=== PATIENT | female | born 1990 | race Caucasian/White ===

== ENCOUNTER 2016-06-20 14:30 | Inpatient (IN) | payer MEDICAID ==
[~2016-06-20] VITALS: Ht 167.6 cm; Wt 86.8 kg
[~2016-06-20 14:30] MED LIST: FERR-89 PO; FLUO-191 PO; PALI234D IM
[2016-06-20 15:05] VITALS: BP 123/64
[2016-06-20] MEDS ORDERED: HALOPERIDOL 5 MG TABLET PO PRN (16:15)
[2016-06-20] MEDS ORDERED: ARIP5TAB9 PO (16:30)
[2016-06-20 16:40] VITALS: BP 121/66
[2016-06-20] MEDS: LORazepam 2 MG TABLET PO PRN (20:14)
[2016-06-20] MEDS: ZOLPIDEM TARTRATE 10 MG TABLET PO PRN (23:25)
[2016-06-21 06:37] LABS: BASOPHILS # (AUTO) 0.07 K/uL (0.00-0.20); BASOPHILS % (AUTO) 0.7 % (0.0-2.0); EOSINOPHILS # (AUTO) 0.12 K/uL (0.00-0.70); EOSINOPHILS % (AUTO) 1.28 % (1.0-6.0); HEMATOCRIT 40.8 % (36-46); HEMOGLOBIN 13.6 g/dL (12.0-16.0); LYMPHOCYTES # (AUTO) 3.9 K/uL (1.0-4.8); MEAN CORPUSCULAR HEMOGLOBIN 29.7 pg (26.0-34.0); MEAN CORPUSCULAR HGB CONC 33.4 G/dL (31.0-37.0); MEAN CORPUSCULAR VOLUME 89 fL (80-100); MONOCYTES # (AUTO) 0.5 K/uL (0.1-1.0); NEUTROPHILS # (AUTO) 4.9 K/uL (1.8-7.7); PLATELET COUNT (AUTO) 342 K/uL (150-450); WHITE BLOOD COUNT (AUTO) 9.5 K/uL (4.5-11.0)
[2016-06-21 07:49] LABS: ALANINE AMINOTRANSFERASE 23 U/L (12-78); ALBUMIN 3.6 g/dL (3.4-5.0); ANION GAP 9 mmol/L (8-16); ASPARTATE AMINOTRANSFERASE 9 U/L (15-37); BILIRUBIN,TOTAL 0.3 mg/dL (0.1-1.0); CALCIUM, TOTAL 8.8 mg/dL (8.8-10.5); CARBON DIOXIDE 27 mmol/L (22-29); CHLORIDE 102 mmol/L (98-107); CHOL/HDL RATIO 4.2 (3.9-5.7); CREATININE 0.71 mg/dL (0.60-1.30); GLOMERULAR FILTR. RATE CALC > 60 mL/min (>60); POTASSIUM 3.7 mmol/L (3.5-5.1); SODIUM SERUM 138 mmol/L (136-145); TOTAL PROTEIN, SERUM 7.9 g/dL (6.4-8.2); UREA NITROGEN, BLOOD 9 mg/dL (7-18)
[2016-06-21] MEDS: LORazepam 2 MG TABLET PO PRN (07:49)
[2016-06-21 08:08] VITALS: BP 118/80
[2016-06-21] MEDS ORDERED: ARIPiprazole 5 MG TABLET PO SCH (09:00)
[2016-06-21 17:11] VITALS: BP 112/64
[2016-06-21] MEDS ORDERED: IBUPROFEN 400 MG TABLET PO PRN (21:00)
[2016-06-21] MEDS ORDERED: ACETAMINOPHEN 325 MG TABLET PO PRN (21:00)
[2016-06-21] MEDS: ZOLPIDEM TARTRATE 10 MG TABLET PO PRN (21:42)
[2016-06-22 02:33] VITALS: BP 116/75
[2016-06-22] MEDS: FERROUS SULFATE 325 MG EC TABLET PO SCH ×3 (06:59→16:44)
[2016-06-22] MEDS: LORazepam 2 MG TABLET PO PRN ×2 (07:59→20:59)
[2016-06-22] MEDS: ARIPiprazole 15 MG TABLET PO SCH (07:59)
[2016-06-22 08:02] VITALS: BP 119/62
[2016-06-22 13:44] LABS: APPEARANCE,URINE CLEAR (CLEAR); GLUCOSE, URINE (UA) NEGATIVE (NEGATIVE); KETONES,URINE NEGATIVE (NEGATIVE); LEUKOCYTE ESTERASE ,URINE NEGATIVE (NEGATIVE); OCCULT BLOOD,URINE TRACE (NEGATIVE); PROTEIN,URINE NEGATIVE (NEGATIVE)
[2016-06-22 13:55] LABS: ADD UA MICROSCOPIC YES
[2016-06-22 13:59] LABS: RBC,URINE 0-2 /HPF (0-2); WBC,URINE None Seen /HPF (0-5)
[2016-06-22 14:00] LABS: SQUAMOUS EPITHELIAL CELL,UR Few /LPF (None Seen)
[2016-06-22] MEDS: ZOLPIDEM TARTRATE 10 MG TABLET PO PRN (22:16)
[2016-06-22 22:43] VITALS: BP 125/65
[2016-06-23] MEDS: FERROUS SULFATE 325 MG EC TABLET PO SCH ×3 (06:58→16:43)
[2016-06-23 08:05] VITALS: BP 122/67
[2016-06-23] MEDS: ARIPiprazole 15 MG TABLET PO SCH (08:34)
[2016-06-23] MEDS: LOPERAMIDE HCL 2 MG CAPSULE PO PRN ×2 (13:34→13:37)
[2016-06-23 16:30] VITALS: BP 122/76
[2016-06-24] MEDS: LORazepam 2 MG TABLET PO PRN (00:05)
[2016-06-24 00:36] VITALS: BP 120/70
[2016-06-24] MEDS: FERROUS SULFATE 325 MG EC TABLET PO SCH ×3 (06:26→17:46)
[2016-06-24] MEDS: ARIPiprazole 15 MG TABLET PO SCH (08:32)
[2016-06-24 08:40] VITALS: BP 129/71
[2016-06-24 16:13] VITALS: BP 100/65
[2016-06-25 04:43] VITALS: BP 106/72
[2016-06-25] MEDS: FERROUS SULFATE 325 MG EC TABLET PO SCH ×2 (06:46→11:19)
[2016-06-25 08:04] VITALS: BP 131/74
[2016-06-25] MEDS: ARIPiprazole 15 MG TABLET PO SCH (08:06)
[2016-06-25] MEDS ORDERED: FERR-89 PO (09:36)
[2016-06-25] MEDS ORDERED: ARIP15TA3 PO (09:36)
[2016-06-25] MEDS: ZOLPIDEM TARTRATE 10 MG TABLET PO PRN (12:27)
== END 2016-06-25 16:00 | disposition home or self-care (01) | DRG 750 ==
LOC: 3EC 16:08 → EDSTATUS 16:30 → 3EI 06-22 14:17
PROVIDERS: ADMIT Psychiatry & Neurology Psychiatry; ATTEND Psychiatry & Neurology Psychiatry
DX: F25.9 Schizoaffective disorder, unspecified (principal); R45.851 Suicidal ideations; F32.9 Major depressive disorder, single episode, unspecified; G47.00 Insomnia, unspecified; R00.0 Tachycardia, unspecified; D64.9 Anemia, unspecified; Z83.3 Family history of diabetes mellitus
CPT/HCPCS: 80307; 84443; 87081

== ENCOUNTER 2016-08-04 11:10 | Emergency (ER) | payer MEDICAID ==
[~2016-08-04] VITALS: Ht 167.6 cm; Wt 86.4 kg
[~2016-08-04 11:10] MED LIST changes: +ARIP15TA3 PO; -FLUO-191 PO; -PALI234D IM
[2016-08-04] MEDS ORDERED: FAMO20 PO (11:18)
[2016-08-04 12:34] LABS: BASOPHILS % (AUTO) 0.6 % (0.0-2.0); EOSINOPHILS % (AUTO) 0.4 % (1.0-6.0); HEMATOCRIT 35.6 % (36-46); HEMOGLOBIN 12.2 g/dL (12.0-16.0); LYMPHOCYTES # (AUTO) 2.9 K/uL (1.0-4.8); LYMPHOCYTES % (AUTO) 41.7 % (22.0-44.0); MEAN CORPUSCULAR HEMOGLOBIN 29.8 pg (26.0-34.0); MEAN CORPUSCULAR HGB CONC 34.4 G/dL (31.0-37.0); MEAN CORPUSCULAR VOLUME 87 fL (80-100); MONOCYTES # (AUTO) 0.3 K/uL (0.1-1.0); MONOCYTES % (AUTO) 4.3 % (2.0-9.0); NEUTROPHILS # (AUTO) 3.7 K/uL (1.8-7.7); PLATELET COUNT (AUTO) 364 K/uL (150-450); RED CELL DISTRIBUTION WIDTH 13.1 % (11.5-14.5)
[2016-08-04 12:39] LABS: ANION GAP 10 mmol/L (8-16); CALCIUM, TOTAL 9.2 mg/dL (8.8-10.5); CARBON DIOXIDE 28 mmol/L (22-29); CHLORIDE 104 mmol/L (98-107); CREATININE 0.77 mg/dL (0.60-1.30); GLOMERULAR FILTR. RATE CALC > 60 mL/min (>60); POTASSIUM 4.1 mmol/L (3.5-5.1); SODIUM SERUM 142 mmol/L (136-145); UREA NITROGEN, BLOOD 11 mg/dL (7-18)
[2016-08-04 12:44] LABS: ALANINE AMINOTRANSFERASE 28 U/L (12-78); ALBUMIN 3.8 g/dL (3.4-5.0); ASPARTATE AMINOTRANSFERASE 17 U/L (15-37); BILIRUBIN,TOTAL 0.4 mg/dL (0.1-1.0); TOTAL PROTEIN, SERUM 7.7 g/dL (6.4-8.2)
[2016-08-04 13:52] VITALS: BP 109/62
== END 2016-08-04 13:52 | disposition home or self-care (01) ==
LOC: EMS 11:13
DX: F32.9 Major depressive disorder, single episode, unspecified (principal); R45.851 Suicidal ideations
CPT/HCPCS: 36415; 80053; 80307; 85025; 99284; G0480

== ENCOUNTER 2017-07-15 18:46 | Emergency (ER) | payer MEDICAID ==
[~2017-07-15] VITALS: Ht 172.7 cm; Wt 81.8 kg
[~2017-07-15 18:46] MED LIST changes: +ARIP15TA2 PO; -ARIP15TA3 PO; +FAMO20 PO; -FERR-89 PO
[2017-07-15 18:56] VITALS: BP 145/84
[2017-07-15 19:42] LABS: BASOPHILS % (AUTO) 0.7 % (0.0-2.0); EOSINOPHILS % (AUTO) 1.2 % (1.0-6.0); HEMATOCRIT 38.4 % (36-46); HEMOGLOBIN 13.5 g/dL (12.0-16.0); LYMPHOCYTES # (AUTO) 3.2 K/uL (1.0-4.8); LYMPHOCYTES % (AUTO) 45.4 % (22.0-44.0); MEAN CORPUSCULAR HEMOGLOBIN 29.9 pg (26.0-34.0); MEAN CORPUSCULAR HGB CONC 35.2 G/dL (31.0-37.0); MEAN CORPUSCULAR VOLUME 85 fL (80-100); MONOCYTES # (AUTO) 0.3 K/uL (0.1-1.0); MONOCYTES % (AUTO) 3.8 % (2.0-9.0); NEUTROPHILS # (AUTO) 3.5 K/uL (1.8-7.7); NEUTROPHILS % (AUTO) 48.9 % (40.0-70.0); PLATELET COUNT (AUTO) 357 K/uL (150-450); RED BLOOD CELL COUNT(AUTO) 4.53 MIL/uL (4.00-5.20); RED CELL DISTRIBUTION WIDTH 13.4 % (11.5-14.5)
[2017-07-15 19:55] LABS: ANION GAP 8 mmol/L (8-16); CALCIUM, TOTAL 8.8 mg/dL (8.8-10.5); CARBON DIOXIDE 25 mmol/L (22-29); CHLORIDE 104 mmol/L (98-107); GLOMERULAR FILTR. RATE CALC > 60 mL/min (>60); GLUCOSE,RANDOM 143 mg/dL (70-110); POTASSIUM 4.2 mmol/L (3.5-5.1); SODIUM SERUM 137 mmol/L (136-145); UREA NITROGEN, BLOOD 8 mg/dL (7-18)
[2017-07-15 20:00] LABS: ALANINE AMINOTRANSFERASE 23 U/L (12-78); ALBUMIN 3.9 g/dL (3.4-5.0); ALKALINE PHOSPHATASE 65 U/L (46-116); ASPARTATE AMINOTRANSFERASE 12 U/L (15-37); BILIRUBIN,TOTAL 0.3 mg/dL (0.1-1.0); TOTAL PROTEIN, SERUM 8.2 g/dL (6.4-8.2)
== END 2017-07-15 22:30 | disposition left against medical advice (07) ==
LOC: EMS 18:47
DX: R44.0 Auditory hallucinations (principal); F20.9 Schizophrenia, unspecified; F32.9 Major depressive disorder, single episode, unspecified; Z53.21 Procedure and treatment not carried out due to patient leaving prior to being seen by health care provider
CPT/HCPCS: 36415; 80053; 84703; 85025; 99281; G0480

== ENCOUNTER 2018-03-31 16:20 | Inpatient (IN) | payer MEDICAID ==
[~2018-03-31] VITALS: Ht 167.6 cm; Wt 80.3 kg
[2018-03-31] MEDS ORDERED: LAMO25 PO (16:30)
[2018-03-31] MEDS ORDERED: QUET25TA PO (16:30)
[2018-03-31 17:07] LABS: BASOPHILS % (AUTO) 0.8 % (0.0-2.0); EOSINOPHILS % (AUTO) 0.3 % (1.0-6.0); HEMATOCRIT 36.8 % (36-46); HEMOGLOBIN 12.9 g/dL (12.0-16.0); LYMPHOCYTES # (AUTO) 2.3 K/uL (1.0-4.8); LYMPHOCYTES % (AUTO) 26.4 % (22.0-44.0); MEAN CORPUSCULAR HGB CONC 35.2 G/dL (31.0-37.0); MEAN CORPUSCULAR VOLUME 85 fL (80-100); MONOCYTES # (AUTO) 0.2 K/uL (0.1-1.0); MONOCYTES % (AUTO) 2.9 % (2.0-9.0); NEUTROPHILS % (AUTO) 69.6 % (40.0-70.0); PLATELET COUNT (AUTO) 361 K/uL (150-450); RED BLOOD CELL COUNT(AUTO) 4.32 MIL/uL (4.00-5.20); RED CELL DISTRIBUTION WIDTH 13.1 % (11.5-14.5)
[2018-03-31 17:14] LABS: ANION GAP 9 mmol/L (8-16); CARBON DIOXIDE 23 mmol/L (22-29); CHLORIDE 103 mmol/L (98-107); CREATININE 0.89 mg/dL (0.60-1.30); GLOMERULAR FILTR. RATE CALC > 60 mL/min (>60); GLUCOSE,RANDOM 188 mg/dL (70-110); SODIUM SERUM 135 mmol/L (136-145); UREA NITROGEN, BLOOD 9 mg/dL (7-18)
[2018-03-31 17:29] LABS: ALANINE AMINOTRANSFERASE 28 U/L (12-78); ALBUMIN 3.9 g/dL (3.4-5.0); ALKALINE PHOSPHATASE 56 U/L (46-116); ASPARTATE AMINOTRANSFERASE 20 U/L (15-37); BILIRUBIN,TOTAL 0.3 mg/dL (0.1-1.0); HCG,QUANTITATIVE < 1 mIU/mL (0-6); THYROID STIMULATING HORMONE 0.83 uIU/mL (0.36-3.74); TOTAL PROTEIN, SERUM 7.9 g/dL (6.4-8.2)
[2018-03-31 18:37] LABS: AMPHET/METH SCREEN,URINE NEGATIVE (NEGATIVE); BARBITURATE SCREEN, URINE NEGATIVE (NEGATIVE); BENZODIAZEPINES SCREEN,URINE NEGATIVE (NEGATIVE); CANNABINOID SCREEN,URINE NEGATIVE (NEGATIVE); COCAINE SCREEN,URINE NEGATIVE (NEGATIVE); METHADONE SCREEN, URINE NEGATIVE (NEGATIVE); OPIATE SCREEN,URINE NEGATIVE (NEGATIVE)
[2018-03-31 18:39] LABS: PHENCYCLIDINE SCREEN,URINE NEGATIVE (NEGATIVE)
[2018-03-31 18:41] LABS: APPEARANCE,URINE CLEAR (CLEAR); BILIRUBIN,URINE NEGATIVE (NEGATIVE); GLUCOSE, URINE (UA) 100 mg/dL (NEGATIVE); KETONES,URINE NEGATIVE (NEGATIVE); LEUKOCYTE ESTERASE ,URINE NEGATIVE (NEGATIVE); NITRATE,URINE NEGATIVE (NEGATIVE); OCCULT BLOOD,URINE TRACE (NEGATIVE); PH,URINE 5.5 (5.0-8.0); PROTEIN,URINE NEGATIVE (NEGATIVE); UROBILINOGEN,URINE 0.2 mg/dL (<=1.0)
[2018-03-31 19:04] LABS: BACTERIA,URINE None Seen /HPF (None Seen); RBC,URINE 0-2 /HPF (0-2); WBC,URINE 0-2 /HPF (0-5)
[2018-03-31 19:05] LABS: MUCUS,URINE Few LPF (None Seen); SQUAMOUS EPITHELIAL CELL,UR Few /LPF (None Seen)
[2018-03-31] MEDS ORDERED: DiphenhydrAMINE HCL 50 MG CAPSULE PO ONE (20:00)
[2018-03-31] MEDS ORDERED: HALOPERIDOL 5 MG TABLET PO ONE (20:00)
[2018-03-31] MEDS ORDERED: HALOPERIDOL 5 MG TABLET PO PRN (20:00)
[2018-03-31] MEDS ORDERED: LORazepam 2 MG TABLET PO ONE (20:00)
[2018-03-31] MEDS ORDERED: ZOLPIDEM TARTRATE 10 MG TABLET PO PRN (20:00)
[2018-03-31 21:16] LABS: CHOL/HDL RATIO 3.3 (3.9-5.7); FREE T4 (FREE THYROXINE) 0.99 ng/dL (0.76-1.46)
[2018-03-31 21:23] LABS: HEMOGLOBIN A1C 5.6 % (4.5-6.2)
[2018-04-01 06:31] VITALS: BP 120/75
[2018-04-01] MEDS ORDERED: LOPERAMIDE HCL 2 MG CAPSULE PO PRN (06:45)
[2018-04-01] MEDS ORDERED: IBUPROFEN 400 MG TABLET PO PRN (06:45)
[2018-04-01] MEDS ORDERED: ACETAMINOPHEN 325 MG TABLET PO PRN (06:45)
[2018-04-01] MEDS ORDERED: MAGNESIUM HYDROXIDE SUSPENSION 30 ML UDCUP PO PRN (06:45)
[2018-04-01] MEDS ORDERED: MAG HYDROX/AL HYDROX/SIMETH ES 30 ML SUSPENSION UDCUP PO PRN (06:45)
[2018-04-01] MEDS ORDERED: ALBUTEROL SULFATE HFA 90 MCG/PUFF 8 GM INHALER IH PRN (06:45)
[2018-04-01] MEDS ORDERED: NICOTINE 14 MG/24 HOUR PATCH TD PRN (06:45)
[2018-04-01] MEDS ORDERED: CloNIDine HCL 0.1 MG TABLET PO PRN (06:45)
[2018-04-01] MEDS ORDERED: DOCUSATE SODIUM 100 MG CAPSULE PO PRN (06:45)
[2018-04-01] MEDS ORDERED: GuaiFENesin/D-METHORPHAN [SUGAR-FREE] 200-20MG/10 ML SYRUP UDCUP PO PRN (06:45)
[2018-04-01] MEDS ORDERED: PETROLATUM,WHITE 71 GM JELLY TP PRN (06:45)
[2018-04-01] MEDS ORDERED: ONDANSETRON HCL 4 MG TABLET PO PRN (06:45)
[2018-04-01 09:04] VITALS: BP 120/68
[2018-04-01] MEDS ORDERED: PALIPERIDONE 1.5 MG ER TABLET PO PRN (15:15)
[2018-04-01] MEDS ORDERED: PALIPERIDONE PALMITATE 234 MG/1.5 ML SYRINGE IM ONE (15:15)
[2018-04-01 18:37] VITALS: BP 125/79
[2018-04-01] MEDS ORDERED: PALIPERIDONE 3 MG ER TABLET PO SCH (21:00)
[2018-04-02 04:35] VITALS: BP 121/68
[2018-04-02 08:14] VITALS: BP 117/71
[2018-04-02 08:46] LABS: CHOL/HDL RATIO 3.7 (3.9-5.7); THYROID STIMULATING HORMONE 0.94 uIU/mL (0.36-3.74)
[2018-04-02 16:22] VITALS: BP 103/64
[2018-04-02 16:37] LABS: HEMOGLOBIN A1C 6.1 % (4.5-6.2)
[2018-04-02] MEDS: LORazepam 2 MG TABLET PO PRN (17:17)
[2018-04-02] MEDS ORDERED: QUEtiapine FUMARATE 100 MG TABLET PO SCH (21:00)
[2018-04-03 05:25] VITALS: BP 104/62
[2018-04-03 08:13] VITALS: BP 105/66
[2018-04-03] MEDS: LamoTRIgine 25 MG TABLET PO SCH (08:32)
[2018-04-03 08:59] LABS: ALANINE AMINOTRANSFERASE 26 U/L (12-78); ALBUMIN 3.6 g/dL (3.4-5.0); ALKALINE PHOSPHATASE 54 U/L (46-116); ANION GAP 11 mmol/L (8-16); ASPARTATE AMINOTRANSFERASE 14 U/L (15-37); BILIRUBIN,TOTAL 0.4 mg/dL (0.1-1.0); CALCIUM, TOTAL 9.1 mg/dL (8.8-10.5); CARBON DIOXIDE 22 mmol/L (22-29); CHLORIDE 106 mmol/L (98-107); CREATININE 0.73 mg/dL (0.60-1.30); GLOMERULAR FILTR. RATE CALC > 60 mL/min (>60); GLUCOSE,RANDOM 111 mg/dL (70-110); POTASSIUM 4.3 mmol/L (3.5-5.1); SODIUM SERUM 139 mmol/L (136-145); UREA NITROGEN, BLOOD 13 mg/dL (7-18)
[2018-04-03 16:21] VITALS: BP 121/90
[2018-04-03] MEDS ORDERED: LAMO25 PO (16:25)
[2018-04-03] MEDS ORDERED: QUET100T33 PO (16:25)
[2018-04-03] MEDS: LORazepam 2 MG TABLET PO PRN (16:59)
[2018-04-03] MEDS ORDERED: QUEtiapine FUMARATE 100 MG TABLET PO SCH (21:00)
[2018-04-04 02:38] VITALS: BP 103/64
[2018-04-04] MEDS ORDERED: LAMO25 PO (08:24)
[2018-04-04] MEDS ORDERED: QUET200T PO (08:25)
[2018-04-04] MEDS: LamoTRIgine 25 MG TABLET PO SCH (08:29)
[2018-04-04 09:09] VITALS: BP 114/67
[2018-04-05] MEDS ORDERED: PALIPERIDONE PALMITATE 156 MG/ML SYRINGE IM ONE (09:00)
== END 2018-04-04 17:05 | disposition home or self-care (01) | DRG 750 ==
LOC: EMS 16:22 → AHU 04-01 06:00 → B2S 04-01 17:35
PROVIDERS: ADMIT Psychiatry & Neurology Psychiatry; ATTEND Psychiatry & Neurology Psychiatry
PROC: 3E0234Z Introduction of Serum, Toxoid and Vaccine into Muscle, Percutaneous Approach (ICD-10-PCS; principal; 2018-04-01)
DX: F25.9 Schizoaffective disorder, unspecified (principal); Z91.19 Patient's noncompliance with other medical treatment and regimen; E78.5 Hyperlipidemia, unspecified; F32.9 Major depressive disorder, single episode, unspecified; Z65.3 Problems related to other legal circumstances; Z83.3 Family history of diabetes mellitus; R73.9 Hyperglycemia, unspecified; Z23 Encounter for immunization
CPT/HCPCS: 83036; 84439; 84443; 90686; G0480

== ENCOUNTER 2018-05-03 15:58 | Inpatient (IN) | payer MEDICAID ==
[~2018-05-03] VITALS: Ht 167.6 cm; Wt 85.4 kg
[~2018-05-03 15:58] MED LIST changes: -ARIP15TA2 PO; -FAMO20 PO; +LAMO25 PO; +QUET100T33 PO; +QUET200T PO
[2018-05-03 20:39] VITALS: BP 120/78
[2018-05-03] MEDS ORDERED: HALOPERIDOL 5 MG TABLET PO PRN (20:45)
[2018-05-03] MEDS ORDERED: ZOLPIDEM TARTRATE 10 MG TABLET PO PRN (20:45)
[2018-05-03] MEDS ORDERED: LORazepam 2 MG TABLET PO PRN (20:45)
[2018-05-03 21:26] VITALS: BP 119/77
[2018-05-03] MEDS ORDERED: IBUPROFEN 400 MG TABLET PO PRN (22:00)
[2018-05-03] MEDS ORDERED: ACETAMINOPHEN 325 MG TABLET PO PRN (22:00)
[2018-05-03] MEDS ORDERED: DOCUSATE SODIUM 100 MG CAPSULE PO PRN (22:00)
[2018-05-03] MEDS ORDERED: ALBUTEROL SULFATE HFA 90 MCG/PUFF 8 GM INHALER IH PRN (22:00)
[2018-05-03] MEDS ORDERED: MAGNESIUM HYDROXIDE SUSPENSION 30 ML UDCUP PO PRN (22:00)
[2018-05-03] MEDS ORDERED: GuaiFENesin/D-METHORPHAN [SUGAR-FREE] 200-20MG/10 ML SYRUP UDCUP PO PRN (22:00)
[2018-05-03] MEDS ORDERED: CloNIDine HCL 0.1 MG TABLET PO PRN (22:00)
[2018-05-03] MEDS ORDERED: ONDANSETRON HCL 4 MG TABLET PO PRN (22:00)
[2018-05-03] MEDS ORDERED: PETROLATUM,WHITE 28 GM JELLY TP PRN (22:00)
[2018-05-03] MEDS ORDERED: NICOTINE 14 MG/24 HOUR PATCH TD PRN (22:00)
[2018-05-03] MEDS ORDERED: MAG HYDROX/AL HYDROX/SIMETH ES 30 ML SUSPENSION UDCUP PO PRN (22:00)
[2018-05-03] MEDS ORDERED: PALI156D IM (22:06)
[2018-05-03] MEDS ORDERED: PALI234D IM (22:06)
[2018-05-04 00:55] VITALS: BP 107/62
[2018-05-04 07:46] LABS: EOSINOPHILS % (AUTO) 2.8 % (1.0-6.0); HEMATOCRIT 38.5 % (36-46); HEMOGLOBIN 13.2 g/dL (12.0-16.0); LYMPHOCYTES # (AUTO) 2.5 K/uL (1.0-4.8); LYMPHOCYTES % (AUTO) 34.9 % (22.0-44.0); MEAN CORPUSCULAR HGB CONC 34.4 G/dL (31.0-37.0); MEAN CORPUSCULAR VOLUME 87 fL (80-100); MONOCYTES # (AUTO) 0.4 K/uL (0.1-1.0); MONOCYTES % (AUTO) 5.2 % (2.0-9.0); NEUTROPHILS % (AUTO) 56.1 % (40.0-70.0); PLATELET COUNT (AUTO) 347 K/uL (150-450); RED BLOOD CELL COUNT(AUTO) 4.42 MIL/uL (4.00-5.20); RED CELL DISTRIBUTION WIDTH 13.9 % (11.5-14.5)
[2018-05-04 08:02] LABS: HEMOGLOBIN A1C 6.4 % (4.5-6.2)
[2018-05-04 08:26] VITALS: BP 123/84
[2018-05-04 08:47] LABS: ALANINE AMINOTRANSFERASE 17 U/L (12-78); ALBUMIN 3.9 g/dL (3.4-5.0); ALKALINE PHOSPHATASE 61 U/L (46-116); ANION GAP 14 mmol/L (8-16); ASPARTATE AMINOTRANSFERASE 12 U/L (15-37); BILIRUBIN,TOTAL 0.5 mg/dL (0.1-1.0); CALCIUM, TOTAL 9.2 mg/dL (8.8-10.5); CARBON DIOXIDE 19 mmol/L (22-29); CHLORIDE 102 mmol/L (98-107); CHOL/HDL RATIO 4.1 (3.9-5.7); CHOLESTEROL 116 mg/dL (131-200); CREATININE 0.75 mg/dL (0.60-1.30); FREE T4 (FREE THYROXINE) 1.01 ng/dL (0.76-1.46); GLOMERULAR FILTR. RATE CALC > 60 mL/min (>60); GLUCOSE,RANDOM 160 mg/dL (70-110); HCG,QUANTITATIVE < 1 mIU/mL (0-6); HDL CHOLESTEROL 28 mg/dL (40-60); LDL CHOL (CALC.) 70 mg/dL (0-130); POTASSIUM 4.3 mmol/L (3.5-5.1); SODIUM SERUM 135 mmol/L (136-145); THYROID STIMULATING HORMONE 2.33 uIU/mL (0.36-3.74); TOTAL PROTEIN, SERUM 7.9 g/dL (6.4-8.2); TRIGLYCERIDES 90 mg/dL (15-150); UREA NITROGEN, BLOOD 11 mg/dL (7-18)
[2018-05-04] MEDS: LamoTRIgine 25 MG TABLET PO SCH (13:08)
[2018-05-04 16:13] VITALS: BP 119/77
[2018-05-04] MEDS ORDERED: QUEtiapine FUMARATE 200 MG TABLET PO SCH (21:00)
[2018-05-04] MEDS: LOPERAMIDE HCL 2 MG CAPSULE PO PRN (21:26)
[2018-05-05 01:10] VITALS: BP 119/72
[2018-05-05] MEDS: LamoTRIgine 25 MG TABLET PO SCH (08:09)
[2018-05-05 08:23] VITALS: BP 115/70
[2018-05-05] MEDS: ARIPiprazole 10 MG TABLET PO SCH (12:39)
[2018-05-05 16:00] VITALS: BP 114/69
[2018-05-05] MEDS: QUEtiapine FUMARATE 200 MG TABLET PO SCH (20:57)
[2018-05-06 00:26] VITALS: BP 108/64
[2018-05-06 09:05] VITALS: BP 108/71
[2018-05-06] MEDS: ARIPiprazole 10 MG TABLET PO SCH (09:13)
[2018-05-06] MEDS: LamoTRIgine 25 MG TABLET PO SCH (09:14)
[2018-05-06 16:30] VITALS: BP 113/72
[2018-05-06] MEDS: QUEtiapine FUMARATE 200 MG TABLET PO SCH (20:08)
[2018-05-06] MEDS: LOPERAMIDE HCL 2 MG CAPSULE PO PRN (20:39)
[2018-05-07 00:30] VITALS: BP 114/60
[2018-05-07 08:34] VITALS: BP 114/68
[2018-05-07] MEDS: LamoTRIgine 25 MG TABLET PO SCH (08:55)
[2018-05-07] MEDS: ARIPiprazole 10 MG TABLET PO SCH (08:55)
[2018-05-07] MEDS ORDERED: ARIP10TA8 PO (09:23)
[2018-05-07 09:25] LABS: APPEARANCE,URINE CLEAR (CLEAR); BILIRUBIN,URINE NEGATIVE (NEGATIVE); GLUCOSE, URINE (UA) NEGATIVE (NEGATIVE); KETONES,URINE NEGATIVE (NEGATIVE); LEUKOCYTE ESTERASE ,URINE NEGATIVE (NEGATIVE); NITRATE,URINE NEGATIVE (NEGATIVE); OCCULT BLOOD,URINE NEGATIVE (NEGATIVE); PH,URINE 5.5 (5.0-8.0); PROTEIN,URINE NEGATIVE (NEGATIVE); UROBILINOGEN,URINE 0.2 mg/dL (<=1.0)
== END 2018-05-07 16:05 | disposition home or self-care (01) | DRG 750 ==
LOC: B2S 20:56
PROVIDERS: ADMIT Psychiatry & Neurology Psychiatry; ATTEND Psychiatry & Neurology Psychiatry
DX: F20.9 Schizophrenia, unspecified (principal); E87.1 Hypo-osmolality and hyponatremia; R45.851 Suicidal ideations; R73.03 Prediabetes; D64.9 Anemia, unspecified; R73.9 Hyperglycemia, unspecified; R45.87 Impulsiveness; F41.0 Panic disorder [episodic paroxysmal anxiety]; Z91.410 Personal history of adult physical and sexual abuse; Z83.3 Family history of diabetes mellitus; Z91.5 Personal history of self-harm
CPT/HCPCS: 83036; 84436; 84439; 84443; 87081

== ENCOUNTER 2019-03-12 14:25 | Inpatient (IN) | payer MEDICAID ==
[~2019-03-12] VITALS: Ht 170.2 cm; Wt 88.0 kg
[~2019-03-12 14:25] MED LIST changes: +ARIP15TA2 PO; +GLIP5TAB11 PO; +IMIQ1CRE9 TP; -LAMO25 PO; +METF-960 PO; -QUET100T33 PO; -QUET200T PO; +QUET200T29 PO
[2019-03-12 15:06] VITALS: BP 115/69
[2019-03-12] MEDS ORDERED: HALOPERIDOL 5 MG TABLET PO PRN (15:15)
[2019-03-12] MEDS ORDERED: ZOLPIDEM TARTRATE 10 MG TABLET PO PRN (15:15)
[2019-03-12] MEDS ORDERED: PNEUMOCOCCAL VACCINE POLYVALENT 0.5 ML VIAL [PPSV23] IM ONE (16:00)
[2019-03-12 16:41] VITALS: BP 117/78
[2019-03-12] MEDS: RisperiDONE 3 MG TABLET PO SCH (17:00)
[2019-03-12] MEDS: BENZTROPINE MESYLATE 1 MG TABLET PO SCH (19:12)
[2019-03-12] MEDS: QUEtiapine FUMARATE 300 MG TABLET PO SCH (19:12)
[2019-03-13 06:00] VITALS: BP 112/60
[2019-03-13 08:22] LABS: BASOPHILS % (AUTO) 0.8 % (0.0-2.0); EOSINOPHILS % (AUTO) 3.6 % (1.0-6.0); HEMOGLOBIN 12.8 g/dL (12.0-16.0); LYMPHOCYTES # (AUTO) 2.5 K/uL (1.0-4.8); LYMPHOCYTES % (AUTO) 33.1 % (22.0-44.0); MEAN CORPUSCULAR HEMOGLOBIN 29.8 pg (26.0-34.0); MEAN CORPUSCULAR HGB CONC 35.4 G/dL (31.0-37.0); MEAN CORPUSCULAR VOLUME 84 fL (80-100); MONOCYTES # (AUTO) 0.5 K/uL (0.1-1.0); MONOCYTES % (AUTO) 6.7 % (2.0-9.0); NEUTROPHILS # (AUTO) 4.3 K/uL (1.8-7.7); NEUTROPHILS % (AUTO) 55.8 % (40.0-70.0); PLATELET COUNT (AUTO) 274 K/uL (150-450); RED BLOOD CELL COUNT(AUTO) 4.28 MIL/uL (4.00-5.20); RED CELL DISTRIBUTION WIDTH 12.5 % (11.5-14.5)
[2019-03-13 08:40] VITALS: BP 109/73
[2019-03-13 08:44] LABS: ALANINE AMINOTRANSFERASE 128 U/L (12-78); ALBUMIN 3.3 g/dL (3.4-5.0); ALKALINE PHOSPHATASE 85 U/L (46-116); ANION GAP 7 mmol/L (8-16); ASPARTATE AMINOTRANSFERASE 39 U/L (15-37); BILIRUBIN,TOTAL 0.3 mg/dL (0.1-1.0); CALCIUM, TOTAL 8.8 mg/dL (8.8-10.5); CARBON DIOXIDE 26 mmol/L (22-29); CHLORIDE 103 mmol/L (98-107); CHOL/HDL RATIO 4.9 (3.9-5.7); CHOLESTEROL 136 mg/dL (131-200); CREATININE 0.65 mg/dL (0.60-1.30); FREE T4 (FREE THYROXINE) 0.91 ng/dL (0.76-1.46); GLOMERULAR FILTR. RATE CALC > 60 mL/min (>60); GLUCOSE,RANDOM 207 mg/dL (70-110); HCG,QUANTITATIVE 1 mIU/mL (0-6); HDL CHOLESTEROL 28 mg/dL (40-60); LDL CHOL (CALC.) 92 mg/dL (0-130); SODIUM SERUM 136 mmol/L (136-145); THYROID STIMULATING HORMONE 1.48 uIU/mL (0.36-3.74); TRIGLYCERIDES 80 mg/dL (15-150); UREA NITROGEN, BLOOD 7 mg/dL (7-18)
[2019-03-13 08:46] LABS: HEMOGLOBIN A1C 9.9 % (4.5-6.2)
[2019-03-13] MEDS: QUEtiapine FUMARATE 300 MG TABLET PO SCH ×2 (09:00→18:33)
[2019-03-13] MEDS ORDERED: ARIPiprazole 15 MG TABLET PO SCH (09:00)
[2019-03-13] MEDS: RisperiDONE 3 MG TABLET PO SCH (09:14)
[2019-03-13] MEDS: BENZTROPINE MESYLATE 1 MG TABLET PO SCH ×2 (09:14→18:34)
[2019-03-13 16:05] VITALS: BP 107/68
[2019-03-13] MEDS ORDERED: QUEtiapine FUMARATE 300 MG TABLET PO SCH (21:00)
[2019-03-14 05:48] VITALS: BP 101/62
[2019-03-14 08:16] VITALS: BP 115/73
[2019-03-14] MEDS: BENZTROPINE MESYLATE 1 MG TABLET PO SCH ×2 (08:21→16:17)
[2019-03-14] MEDS: LITHIUM CARBONATE 300 MG CAPSULE PO SCH ×2 (08:21→16:17)
[2019-03-14] MEDS: QUEtiapine FUMARATE 300 MG TABLET PO SCH ×2 (08:23→16:17)
[2019-03-14 16:45] VITALS: BP 139/78
[2019-03-14] MEDS ORDERED: QUET300T2 PO (17:08)
[2019-03-14 17:14] LABS: GLUCOMETER DEV NAME(LOC) BV3N.; GLUCOSE,POINT OF CARE 241 MG/DL (70-110)
[2019-03-14] MEDS ORDERED: MetFORMIN HCL 850 MG TABLET PO SCH (17:15)
[2019-03-14] MEDS ORDERED: GLUCAGON,HUMAN RECOMBINANT 1 MG VIAL IM PRN (17:15)
[2019-03-14] MEDS: INSULIN LISPRO 100 UNITS/ML SQ PRN ×2 (17:31→20:46)
[2019-03-14] MEDS: LORazepam 2 MG TABLET PO PRN (17:32)
[2019-03-14] MEDS: MetFORMIN HCL 500 MG TABLET PO SCH (17:50)
[2019-03-14] MEDS: ARIPiprazole 15 MG TABLET PO SCH (20:03)
[2019-03-14 20:52] LABS: GLUCOMETER DEV NAME(LOC) BV3N.; GLUCOSE,POINT OF CARE 315 MG/DL (70-110)
[2019-03-15 05:28] VITALS: BP 124/76
[2019-03-15] MEDS: MetFORMIN HCL 500 MG TABLET PO SCH ×2 (06:17→16:55)
[2019-03-15] MEDS: GlipiZIDE 5 MG TABLET PO SCH ×2 (06:17→16:58)
[2019-03-15 06:24] LABS: GLUCOMETER DEV NAME(LOC) BV3N.; GLUCOSE,POINT OF CARE 181 MG/DL (70-110)
[2019-03-15] MEDS: INSULIN LISPRO 100 UNITS/ML SQ PRN ×3 (07:03→20:43)
[2019-03-15 08:16] LABS: APPEARANCE,URINE CLEAR (CLEAR); BILIRUBIN,URINE NEGATIVE (NEGATIVE); GLUCOSE, URINE (UA) 250 mg/dL (NEGATIVE); KETONES,URINE NEGATIVE (NEGATIVE); LEUKOCYTE ESTERASE ,URINE NEGATIVE (NEGATIVE); NITRATE,URINE NEGATIVE (NEGATIVE); OCCULT BLOOD,URINE NEGATIVE (NEGATIVE); PH,URINE 5.5 (5.0-8.0); PROTEIN,URINE NEGATIVE (NEGATIVE); UROBILINOGEN,URINE 0.2 mg/dL (<=1.0)
[2019-03-15] MEDS: LITHIUM CARBONATE 300 MG CAPSULE PO SCH ×2 (08:16→16:55)
[2019-03-15] MEDS: LORazepam 2 MG TABLET PO PRN ×2 (08:16→16:56)
[2019-03-15] MEDS: BENZTROPINE MESYLATE 1 MG TABLET PO SCH ×2 (08:16→16:56)
[2019-03-15] MEDS: QUEtiapine FUMARATE 300 MG TABLET PO SCH ×2 (08:17→16:56)
[2019-03-15 08:21] VITALS: BP 126/81
[2019-03-15 08:23] LABS: AMPHET/METH SCREEN,URINE NEGATIVE (NEGATIVE); BARBITURATE SCREEN, URINE NEGATIVE (NEGATIVE); BENZODIAZEPINES SCREEN,URINE NEGATIVE (NEGATIVE); CANNABINOID SCREEN,URINE NEGATIVE (NEGATIVE); COCAINE SCREEN,URINE NEGATIVE (NEGATIVE); METHADONE SCREEN, URINE NEGATIVE (NEGATIVE); OPIATE SCREEN,URINE NEGATIVE (NEGATIVE)
[2019-03-15 08:32] LABS: BACTERIA,URINE None Seen /HPF (None Seen); RBC,URINE 0-2 /HPF (0-2); SQUAMOUS EPITHELIAL CELL,UR Moderate /LPF (None Seen); WBC,URINE None Seen /HPF (0-5)
[2019-03-15 08:33] LABS: PHENCYCLIDINE SCREEN,URINE NEGATIVE (NEGATIVE)
[2019-03-15 16:30] VITALS: BP 125/61
[2019-03-15 16:50] LABS: GLUCOMETER DEV NAME(LOC) BV3N.; GLUCOSE,POINT OF CARE 225 MG/DL (70-110)
[2019-03-15] MEDS: ARIPiprazole 15 MG TABLET PO SCH (20:25)
[2019-03-15 20:51] LABS: GLUCOMETER DEV NAME(LOC) BV3N.; GLUCOSE,POINT OF CARE 186 MG/DL (70-110)
[2019-03-16 04:42] VITALS: BP 112/73
[2019-03-16] MEDS: MetFORMIN HCL 500 MG TABLET PO SCH ×2 (06:15→16:20)
[2019-03-16] MEDS: GlipiZIDE 5 MG TABLET PO SCH ×2 (06:15→16:20)
[2019-03-16 06:24] LABS: GLUCOMETER DEV NAME(LOC) BV3N.; GLUCOSE,POINT OF CARE 217 MG/DL (70-110)
[2019-03-16] MEDS: INSULIN LISPRO 100 UNITS/ML SQ PRN ×2 (06:25→11:40)
[2019-03-16 08:00] VITALS: BP 119/72
[2019-03-16] MEDS: BENZTROPINE MESYLATE 1 MG TABLET PO SCH ×2 (08:57→16:20)
[2019-03-16] MEDS: LITHIUM CARBONATE 300 MG CAPSULE PO SCH ×2 (08:57→16:20)
[2019-03-16] MEDS: QUEtiapine FUMARATE 300 MG TABLET PO SCH (09:00)
[2019-03-16 11:26] LABS: GLUCOMETER DEV NAME(LOC) BV3N.; GLUCOSE,POINT OF CARE 160 MG/DL (70-110)
[2019-03-16] MEDS ORDERED: ARIP15TA2 PO ×3 (14:20→14:22)
[2019-03-16] MEDS ORDERED: BENZ1TAB10 PO ×2 (14:24→14:25)
[2019-03-16 16:14] LABS: GLUCOMETER DEV NAME(LOC) BV3N.; GLUCOSE,POINT OF CARE 184 MG/DL (70-110)
== END 2019-03-16 17:35 | disposition home or self-care (01) | DRG 750 ==
LOC: B3A 15:17
PROVIDERS: ADMIT Psychiatry & Neurology Psychiatry; ATTEND Psychiatry & Neurology Psychiatry
PROC: 3E0234Z Introduction of Serum, Toxoid and Vaccine into Muscle, Percutaneous Approach (ICD-10-PCS; principal; 2019-03-12)
DX: F25.9 Schizoaffective disorder, unspecified (principal); Z23 Encounter for immunization
CPT/HCPCS: 80307; 83036; 84439; 84443; 87081; 90732

== ENCOUNTER 2019-07-07 18:22 | Emergency (ER) | payer MEDICAID ==
[~2019-07-07] VITALS: Ht 167.6 cm; Wt 84.1 kg
[~2019-07-07 18:22] MED LIST changes: +BENZ1TAB10 PO; -IMIQ1CRE9 TP; -QUET200T29 PO; +QUET300T2 PO
[2019-07-07 19:13] LABS: GLUCOSE,POINT OF CARE 239 MG/DL (70-110)
[2019-07-07 19:22] LABS: BASOPHILS % (AUTO) 0.9 % (0.0-2.0); EOSINOPHILS % (AUTO) 1.4 % (1.0-6.0); HEMATOCRIT 38.8 % (36-46); HEMOGLOBIN 13.3 g/dL (12.0-16.0); LYMPHOCYTES % (AUTO) 44.4 % (22.0-44.0); MEAN CORPUSCULAR HGB CONC 34.3 G/dL (31.0-37.0); MEAN CORPUSCULAR VOLUME 87 fL (80-100); MONOCYTES # (AUTO) 0.4 K/uL (0.1-1.0); MONOCYTES % (AUTO) 5.2 % (2.0-9.0); NEUTROPHILS # (AUTO) 3.3 K/uL (1.8-7.7); NEUTROPHILS % (AUTO) 48.1 % (40.0-70.0); PLATELET COUNT (AUTO) 316 K/uL (150-450); RED BLOOD CELL COUNT(AUTO) 4.43 MIL/uL (4.00-5.20); RED CELL DISTRIBUTION WIDTH 12.7 % (11.5-14.5)
[2019-07-07 19:48] LABS: ANION GAP 11 mmol/L (8-16); CARBON DIOXIDE 26 mmol/L (22-29); CHLORIDE 104 mmol/L (98-107); CREATININE 0.64 mg/dL (0.60-1.30); GLOMERULAR FILTR. RATE CALC > 60 mL/min (>60); GLUCOSE,RANDOM 205 mg/dL (70-110); POTASSIUM 4.1 mmol/L (3.5-5.1); SODIUM SERUM 141 mmol/L (136-145); UREA NITROGEN, BLOOD 7 mg/dL (7-18)
[2019-07-07 19:53] LABS: ALANINE AMINOTRANSFERASE 115 U/L (12-78); ALBUMIN 4.1 g/dL (3.4-5.0); ALKALINE PHOSPHATASE 72 U/L (46-116); ASPARTATE AMINOTRANSFERASE 34 U/L (15-37); BILIRUBIN,TOTAL 0.4 mg/dL (0.1-1.0); TOTAL PROTEIN, SERUM 8.2 g/dL (6.4-8.2)
[2019-07-07 20:52] LABS: AMPHET/METH SCREEN,URINE NEGATIVE (NEGATIVE); BARBITURATE SCREEN, URINE NEGATIVE (NEGATIVE); BENZODIAZEPINES SCREEN,URINE NEGATIVE (NEGATIVE); CANNABINOID SCREEN,URINE NEGATIVE (NEGATIVE); COCAINE SCREEN,URINE NEGATIVE (NEGATIVE); METHADONE SCREEN, URINE NEGATIVE (NEGATIVE); OPIATE SCREEN,URINE NEGATIVE (NEGATIVE)
[2019-07-07 20:56] LABS: PHENCYCLIDINE SCREEN,URINE NEGATIVE (NEGATIVE)
[2019-07-08] MEDS ORDERED: HALOPERIDOL 5 MG TABLET PO ONE (01:45)
[2019-07-08 05:03] VITALS: BP 116/70
== END 2019-07-08 06:54 | disposition home or self-care (01) ==
LOC: EMS 18:24
DX: F20.9 Schizophrenia, unspecified (principal); E11.9 Type 2 diabetes mellitus without complications; Z79.84 Long term (current) use of oral hypoglycemic drugs
CPT/HCPCS: 36415; 80053; 80307; 82962; 85025; 99284; G0480

== ENCOUNTER 2019-07-22 22:24 | Inpatient (IN) | payer MEDICAID ==
[~2019-07-22] VITALS: Ht 170.2 cm; Wt 85.7 kg
[2019-07-23 00:37] VITALS: BP 109/67
[2019-07-23] MEDS ORDERED: -PHARMACY VACCINE NOTE- MISC ONE (01:15)
[2019-07-23] MEDS ORDERED: ACETAMINOPHEN 325 MG TABLET PO PRN (07:45)
[2019-07-23] MEDS ORDERED: IBUPROFEN 600 MG TABLET PO PRN (07:45)
[2019-07-23] MEDS ORDERED: DOCUSATE SODIUM 100 MG CAPSULE PO PRN (07:45)
[2019-07-23] MEDS ORDERED: GLUCAGON,HUMAN RECOMBINANT 1 MG VIAL IM PRN (07:45)
[2019-07-23] MEDS ORDERED: BACITRACIN 28.4 GM OINTMENT TP PRN (07:45)
[2019-07-23] MEDS ORDERED: MAG HYDROX/AL HYDROX/SIMETH ES 30 ML SUSPENSION UDCUP PO PRN (07:45)
[2019-07-23] MEDS ORDERED: PETROLATUM,WHITE 28 GM JELLY TP PRN (07:45)
[2019-07-23] MEDS ORDERED: OMEPRAZOLE 20 MG CAPSULE PO PRN (07:45)
[2019-07-23] MEDS ORDERED: ONDANSETRON HCL 4 MG TABLET PO PRN (07:45)
[2019-07-23] MEDS ORDERED: CloNIDine HCL 0.1 MG TABLET PO PRN (07:45)
[2019-07-23] MEDS ORDERED: LOPERAMIDE HCL 2 MG CAPSULE PO PRN (07:45)
[2019-07-23] MEDS ORDERED: BENZOCAINE/MENTHOL LOZENGE MM PRN (07:45)
[2019-07-23] MEDS ORDERED: MAGNESIUM HYDROXIDE SUSPENSION 30 ML UDCUP PO PRN (07:45)
[2019-07-23] MEDS ORDERED: ALBUTEROL SULFATE HFA 90 MCG/PUFF 8 GM INHALER IH PRN (07:45)
[2019-07-23 08:20] LABS: BASOPHILS % (AUTO) 0.6 % (0.0-2.0); HEMATOCRIT 36.5 % (36-46); HEMOGLOBIN 12.9 g/dL (12.0-16.0); LYMPHOCYTES # (AUTO) 3.1 K/uL (1.0-4.8); MEAN CORPUSCULAR HEMOGLOBIN 30.2 pg (26.0-34.0); MEAN CORPUSCULAR HGB CONC 35.2 G/dL (31.0-37.0); MEAN CORPUSCULAR VOLUME 86 fL (80-100); MONOCYTES # (AUTO) 0.4 K/uL (0.1-1.0); MONOCYTES % (AUTO) 6.1 % (2.0-9.0); NEUTROPHILS # (AUTO) 3.6 K/uL (1.8-7.7); NEUTROPHILS % (AUTO) 49.3 % (40.0-70.0); PLATELET COUNT (AUTO) 322 K/uL (150-450); RED BLOOD CELL COUNT(AUTO) 4.26 MIL/uL (4.00-5.20); RED CELL DISTRIBUTION WIDTH 12.6 % (11.5-14.5)
[2019-07-23 08:31] VITALS: BP 113/72
[2019-07-23 09:03] LABS: ALANINE AMINOTRANSFERASE 113 U/L (12-78); ALKALINE PHOSPHATASE 68 U/L (46-116); ANION GAP 12 mmol/L (8-16); ASPARTATE AMINOTRANSFERASE 44 U/L (15-37); BILIRUBIN,TOTAL 0.6 mg/dL (0.1-1.0); CALCIUM, TOTAL 9.1 mg/dL (8.8-10.5); CARBON DIOXIDE 22 mmol/L (22-29); CHLORIDE 102 mmol/L (98-107); CHOL/HDL RATIO 5.1 (3.9-5.7); CHOLESTEROL 159 mg/dL (131-200); CREATININE 0.79 mg/dL (0.60-1.30); FREE T4 (FREE THYROXINE) 1.04 ng/dL (0.76-1.46); GLOMERULAR FILTR. RATE CALC > 60 mL/min (>60); GLUCOSE,RANDOM 199 mg/dL (70-110); HCG,QUANTITATIVE 1 mIU/mL (0-6); HDL CHOLESTEROL 31 mg/dL (40-60); LDL CHOL (CALC.) 103 mg/dL (0-130); POTASSIUM 3.5 mmol/L (3.5-5.1); SODIUM SERUM 136 mmol/L (136-145); TOTAL PROTEIN, SERUM 7.9 g/dL (6.4-8.2); TRIGLYCERIDES 124 mg/dL (15-150); UREA NITROGEN, BLOOD 13 mg/dL (7-18)
[2019-07-23] MEDS: CHOLECALCIFEROL (VIT D3) 1,000 UNITS [25 MCG] TABLET PO SCH (10:11)
[2019-07-23] MEDS: INSULIN LISPRO 100 UNITS/ML SQ PRN ×2 (11:20→17:25)
[2019-07-23] MEDS: QUEtiapine FUMARATE 300 MG TABLET PO SCH ×2 (11:35→16:47)
[2019-07-23] MEDS: BENZTROPINE MESYLATE 1 MG TABLET PO SCH ×2 (11:35→16:47)
[2019-07-23 11:36] LABS: GLUCOMETER DEV NAME(LOC) BV3S.; GLUCOSE,POINT OF CARE 185 MG/DL (70-110)
[2019-07-23 16:20] VITALS: BP 119/70
[2019-07-23 16:22] LABS: GLUCOMETER DEV NAME(LOC) BV3S.; GLUCOSE,POINT OF CARE 209 MG/DL (70-110)
[2019-07-23] MEDS: GlipiZIDE 5 MG TABLET PO SCH (16:47)
[2019-07-23] MEDS: MetFORMIN HCL 500 MG TABLET PO SCH (16:47)
[2019-07-23] MEDS: ARIPiprazole 15 MG TABLET PO SCH (20:14)
[2019-07-23 20:24] LABS: GLUCOMETER DEV NAME(LOC) BV3S.; GLUCOSE,POINT OF CARE 85 MG/DL (70-110)
[2019-07-24 05:45] VITALS: BP 115/74
[2019-07-24] MEDS: MetFORMIN HCL 500 MG TABLET PO SCH ×2 (07:01→16:59)
[2019-07-24] MEDS: GlipiZIDE 5 MG TABLET PO SCH ×2 (07:01→16:59)
[2019-07-24] MEDS: CHOLECALCIFEROL (VIT D3) 1,000 UNITS [25 MCG] TABLET PO SCH (08:26)
[2019-07-24] MEDS: BENZTROPINE MESYLATE 1 MG TABLET PO SCH ×2 (08:26→16:59)
[2019-07-24] MEDS: QUEtiapine FUMARATE 300 MG TABLET PO SCH ×2 (08:31→17:07)
[2019-07-24 08:33] VITALS: BP 117/75
[2019-07-24 08:42] LABS: GLUCOMETER DEV NAME(LOC) BV3S.; GLUCOSE,POINT OF CARE 174 MG/DL (70-110)
[2019-07-24 08:49] LABS: APPEARANCE,URINE CLOUDY (CLEAR); BILIRUBIN,URINE NEGATIVE (NEGATIVE); GLUCOSE, URINE (UA) >=1000 mg/dL (NEGATIVE); KETONES,URINE TRACE mg/dL (NEGATIVE); LEUKOCYTE ESTERASE ,URINE NEGATIVE (NEGATIVE); NITRATE,URINE NEGATIVE (NEGATIVE); OCCULT BLOOD,URINE TRACE (NEGATIVE); PH,URINE 6.5 (5.0-8.0); PROTEIN,URINE NEGATIVE (NEGATIVE)
[2019-07-24 08:51] LABS: AMPHET/METH SCREEN,URINE NEGATIVE (NEGATIVE); BARBITURATE SCREEN, URINE NEGATIVE (NEGATIVE); BENZODIAZEPINES SCREEN,URINE NEGATIVE (NEGATIVE); CANNABINOID SCREEN,URINE NEGATIVE (NEGATIVE); COCAINE SCREEN,URINE NEGATIVE (NEGATIVE); METHADONE SCREEN, URINE NEGATIVE (NEGATIVE); OPIATE SCREEN,URINE NEGATIVE (NEGATIVE)
[2019-07-24 08:53] LABS: PHENCYCLIDINE SCREEN,URINE NEGATIVE (NEGATIVE)
[2019-07-24 09:08] LABS: RBC,URINE 0-2 /HPF (0-2); WBC,URINE None Seen /HPF (0-5)
[2019-07-24 09:09] LABS: BACTERIA,URINE None Seen /HPF (None Seen)
[2019-07-24 11:13] LABS: GLUCOMETER DEV NAME(LOC) BV3S.; GLUCOSE,POINT OF CARE 101 MG/DL (70-110)
[2019-07-24 16:13] VITALS: BP 118/78
[2019-07-24] MEDS: INSULIN LISPRO 100 UNITS/ML SQ PRN (17:05)
[2019-07-24] MEDS: LORazepam 2 MG TABLET PO PRN (17:41)
[2019-07-24] MEDS: ARIPiprazole 15 MG TABLET PO SCH (20:18)
[2019-07-24 20:35] LABS: GLUCOMETER DEV NAME(LOC) BV3S.; GLUCOSE,POINT OF CARE 100 MG/DL (70-110)
[2019-07-25] VITALS: BP 116/72
[2019-07-25] MEDS: QUEtiapine FUMARATE 300 MG TABLET PO SCH ×2 (01:00→20:08)
[2019-07-25] MEDS: GlipiZIDE 5 MG TABLET PO SCH ×2 (06:27→16:07)
[2019-07-25] MEDS: MetFORMIN HCL 500 MG TABLET PO SCH ×2 (06:28→16:45)
[2019-07-25] MEDS: INSULIN LISPRO 100 UNITS/ML SQ PRN ×3 (06:37→16:05)
[2019-07-25 06:45] LABS: GLUCOMETER DEV NAME(LOC) BV2S.; GLUCOSE,POINT OF CARE 121 MG/DL (70-110)
[2019-07-25] MEDS: BENZTROPINE MESYLATE 1 MG TABLET PO SCH ×2 (08:38→16:07)
[2019-07-25] MEDS: CHOLECALCIFEROL (VIT D3) 1,000 UNITS [25 MCG] TABLET PO SCH (08:39)
[2019-07-25 09:36] VITALS: BP 123/79
[2019-07-25] MEDS: LORazepam 2 MG TABLET PO PRN (09:52)
[2019-07-25 11:01] LABS: GLUCOMETER DEV NAME(LOC) BV2S.; GLUCOSE,POINT OF CARE 127 MG/DL (70-110)
[2019-07-25 16:03] VITALS: BP 124/81
[2019-07-25 16:19] LABS: GLUCOMETER DEV NAME(LOC) BV2S.; GLUCOSE,POINT OF CARE 179 MG/DL (70-110)
[2019-07-25] MEDS: ARIPiprazole 15 MG TABLET PO SCH (20:08)
[2019-07-25 20:19] LABS: GLUCOMETER DEV NAME(LOC) BV2S.; GLUCOSE,POINT OF CARE 110 MG/DL (70-110)
[2019-07-26] MEDS: ZOLPIDEM TARTRATE 10 MG TABLET PO PRN (00:14)
[2019-07-26 03:42] VITALS: BP 105/77
[2019-07-26] MEDS: LORazepam 2 MG TABLET PO PRN (04:08)
[2019-07-26] MEDS: MetFORMIN HCL 500 MG TABLET PO SCH ×2 (06:30→16:40)
[2019-07-26] MEDS: GlipiZIDE 5 MG TABLET PO SCH ×2 (06:30→16:08)
[2019-07-26] MEDS: INSULIN LISPRO 100 UNITS/ML SQ PRN ×3 (06:49→20:47)
[2019-07-26 06:54] LABS: GLUCOMETER DEV NAME(LOC) BV2S.; GLUCOSE,POINT OF CARE 132 MG/DL (70-110)
[2019-07-26] MEDS: CHOLECALCIFEROL (VIT D3) 1,000 UNITS [25 MCG] TABLET PO SCH (08:14)
[2019-07-26] MEDS: BENZTROPINE MESYLATE 1 MG TABLET PO SCH ×2 (08:14→16:09)
[2019-07-26 09:20] VITALS: BP 121/78
[2019-07-26 16:04] VITALS: BP 116/67
[2019-07-26 16:19] LABS: GLUCOMETER DEV NAME(LOC) BV2S.; GLUCOSE,POINT OF CARE 124 MG/DL (70-110)
[2019-07-26] MEDS: QUEtiapine FUMARATE 300 MG TABLET PO SCH (20:05)
[2019-07-26] MEDS: ARIPiprazole 15 MG TABLET PO SCH (20:05)
[2019-07-26 22:20] LABS: GLUCOMETER DEV NAME(LOC) BV2S.; GLUCOSE,POINT OF CARE 154 MG/DL (70-110)
[2019-07-27 00:59] VITALS: BP 100/62
[2019-07-27] MEDS: HALOPERIDOL 5 MG TABLET PO PRN ×2 (04:36→10:12)
[2019-07-27] MEDS: MetFORMIN HCL 500 MG TABLET PO SCH ×2 (06:34→17:07)
[2019-07-27] MEDS: GlipiZIDE 5 MG TABLET PO SCH ×2 (06:34→16:22)
[2019-07-27] MEDS: INSULIN LISPRO 100 UNITS/ML SQ PRN ×4 (06:47→21:56)
[2019-07-27 06:55] LABS: GLUCOMETER DEV NAME(LOC) BV2S.; GLUCOSE,POINT OF CARE 124 MG/DL (70-110)
[2019-07-27] MEDS: LORazepam 2 MG TABLET PO PRN (07:13)
[2019-07-27] MEDS: BENZTROPINE MESYLATE 1 MG TABLET PO SCH ×2 (08:43→17:07)
[2019-07-27] MEDS: CHOLECALCIFEROL (VIT D3) 1,000 UNITS [25 MCG] TABLET PO SCH (08:43)
[2019-07-27 08:44] VITALS: BP 123/76
[2019-07-27 10:59] LABS: GLUCOMETER DEV NAME(LOC) BV2S.; GLUCOSE,POINT OF CARE 159 MG/DL (70-110)
[2019-07-27 16:03] VITALS: BP 105/65
[2019-07-27 16:21] LABS: GLUCOMETER DEV NAME(LOC) BV2S.; GLUCOSE,POINT OF CARE 157 MG/DL (70-110)
[2019-07-27 20:18] LABS: GLUCOMETER DEV NAME(LOC) BV2S.; GLUCOSE,POINT OF CARE 120 MG/DL (70-110)
[2019-07-27] MEDS: QUEtiapine FUMARATE 300 MG TABLET PO SCH (20:31)
[2019-07-27] MEDS: ARIPiprazole 15 MG TABLET PO SCH (20:31)
[2019-07-28 03:31] VITALS: BP 108/65
[2019-07-28] MEDS: MetFORMIN HCL 500 MG TABLET PO SCH ×2 (06:50→16:34)
[2019-07-28] MEDS: GlipiZIDE 5 MG TABLET PO SCH ×2 (06:50→16:34)
[2019-07-28 06:55] LABS: GLUCOMETER DEV NAME(LOC) BV2S.; GLUCOSE,POINT OF CARE 112 MG/DL (70-110)
[2019-07-28 08:54] VITALS: BP 108/66
[2019-07-28] MEDS: CHOLECALCIFEROL (VIT D3) 1,000 UNITS [25 MCG] TABLET PO SCH (09:28)
[2019-07-28] MEDS: BENZTROPINE MESYLATE 1 MG TABLET PO SCH ×2 (09:28→16:34)
[2019-07-28] MEDS: INSULIN LISPRO 100 UNITS/ML SQ PRN ×2 (10:53→20:43)
[2019-07-28 10:58] LABS: GLUCOMETER DEV NAME(LOC) BV2S.; GLUCOSE,POINT OF CARE 152 MG/DL (70-110)
[2019-07-28] MEDS: LORazepam 2 MG TABLET PO PRN (14:59)
[2019-07-28 16:21] LABS: GLUCOMETER DEV NAME(LOC) BV2S.; GLUCOSE,POINT OF CARE 117 MG/DL (70-110)
[2019-07-28 16:30] VITALS: BP 113/67
[2019-07-28] MEDS: HALOPERIDOL 5 MG TABLET PO PRN (17:58)
[2019-07-28 20:15] LABS: GLUCOMETER DEV NAME(LOC) BV2S.; GLUCOSE,POINT OF CARE 156 MG/DL (70-110)
[2019-07-28] MEDS: ARIPiprazole 15 MG TABLET PO SCH (20:38)
[2019-07-28] MEDS: QUEtiapine FUMARATE 300 MG TABLET PO SCH (20:38)
[2019-07-28] MEDS: ZOLPIDEM TARTRATE 10 MG TABLET PO PRN (21:24)
[2019-07-29 00:45] VITALS: BP 109/63
[2019-07-29] MEDS: GlipiZIDE 5 MG TABLET PO SCH ×2 (06:10→16:38)
[2019-07-29] MEDS: MetFORMIN HCL 500 MG TABLET PO SCH ×2 (06:11→16:38)
[2019-07-29 06:29] LABS: GLUCOMETER DEV NAME(LOC) BV2S.; GLUCOSE,POINT OF CARE 138 MG/DL (70-110)
[2019-07-29] MEDS: INSULIN LISPRO 100 UNITS/ML SQ PRN ×4 (06:44→20:45)
[2019-07-29 08:06] VITALS: BP 107/66
[2019-07-29] MEDS: BENZTROPINE MESYLATE 1 MG TABLET PO SCH ×2 (08:57→16:38)
[2019-07-29] MEDS: CHOLECALCIFEROL (VIT D3) 1,000 UNITS [25 MCG] TABLET PO SCH (08:57)
[2019-07-29 11:48] LABS: GLUCOMETER DEV NAME(LOC) BV2S.; GLUCOSE,POINT OF CARE 153 MG/DL (70-110)
[2019-07-29 16:17] VITALS: BP 114/77
[2019-07-29 16:30] LABS: GLUCOMETER DEV NAME(LOC) BV2S.; GLUCOSE,POINT OF CARE 124 MG/DL (70-110)
[2019-07-29 20:18] LABS: GLUCOMETER DEV NAME(LOC) BV2S.; GLUCOSE,POINT OF CARE 183 MG/DL (70-110)
[2019-07-29] MEDS: QUEtiapine FUMARATE 300 MG TABLET PO SCH (20:40)
[2019-07-29] MEDS: ARIPiprazole 15 MG TABLET PO SCH (20:40)
[2019-07-30 00:01] VITALS: BP 100/70
[2019-07-30] MEDS: LORazepam 2 MG TABLET PO PRN ×2 (00:05→13:02)
[2019-07-30] MEDS: INSULIN LISPRO 100 UNITS/ML SQ PRN ×3 (06:42→16:31)
[2019-07-30] MEDS: GlipiZIDE 5 MG TABLET PO SCH ×2 (06:44→16:24)
[2019-07-30] MEDS: MetFORMIN HCL 500 MG TABLET PO SCH ×2 (06:44→16:24)
[2019-07-30 06:48] LABS: GLUCOMETER DEV NAME(LOC) BV2S.; GLUCOSE,POINT OF CARE 138 MG/DL (70-110)
[2019-07-30] MEDS: BENZTROPINE MESYLATE 1 MG TABLET PO SCH ×2 (08:18→16:24)
[2019-07-30] MEDS: CHOLECALCIFEROL (VIT D3) 1,000 UNITS [25 MCG] TABLET PO SCH (08:18)
[2019-07-30 11:03] LABS: GLUCOMETER DEV NAME(LOC) BV2S.; GLUCOSE,POINT OF CARE 188 MG/DL (70-110)
[2019-07-30 16:14] LABS: GLUCOMETER DEV NAME(LOC) BV2S.; GLUCOSE,POINT OF CARE 152 MG/DL (70-110)
== END 2019-07-30 18:02 | disposition home or self-care (01) | DRG 750 ==
LOC: B3A 23:36 → B2S 07-24 20:45
PROVIDERS: ADMIT Psychiatry & Neurology Psychiatry; ATTEND Psychiatry & Neurology Psychiatry
DX: F20.0 Paranoid schizophrenia (principal); R45.851 Suicidal ideations; E11.65 Type 2 diabetes mellitus with hyperglycemia; R74.0 Nonspecific elevation of levels of transaminase and lactic acid dehydrogenase [LDH]; D50.9 Iron deficiency anemia, unspecified; E55.9 Vitamin D deficiency, unspecified; F41.9 Anxiety disorder, unspecified; G47.00 Insomnia, unspecified; K59.00 Constipation, unspecified; K21.9 Gastro-esophageal reflux disease without esophagitis; Z79.899 Other long term (current) drug therapy
CPT/HCPCS: 80307; 83036; 84439; 84443; 86592; Q0162

== ENCOUNTER 2019-08-05 18:07 | Inpatient (IN) | payer MEDICAID ==
[~2019-08-05] VITALS: Ht 170.2 cm; Wt 83.9 kg
[2019-08-05] MEDS ORDERED: ZOLPIDEM TARTRATE 10 MG TABLET PO PRN (18:45)
[2019-08-05 18:58] VITALS: BP 123/80
[2019-08-05 19:47] VITALS: BP 124/85
[2019-08-05] MEDS ORDERED: INSULIN LISPRO 100 UNITS/ML SQ PRN (20:15)
[2019-08-05] MEDS ORDERED: DEXTROSE 50%-WATER 25 GM/50 ML SYRINGE IVP PRN (20:15)
[2019-08-05 20:18] LABS: GLUCOMETER DEV NAME(LOC) BV2S.; GLUCOSE,POINT OF CARE 119 MG/DL (70-110)
[2019-08-06 03:06] VITALS: BP 131/73
[2019-08-06] MEDS: LORazepam 2 MG TABLET PO PRN (04:11)
[2019-08-06] MEDS ORDERED: GLUCAGON,HUMAN RECOMBINANT 1 MG VIAL IM PRN (04:30)
[2019-08-06 06:52] LABS: GLUCOMETER DEV NAME(LOC) BV2X.; GLUCOSE,POINT OF CARE 135 MG/DL (70-110)
[2019-08-06] MEDS ORDERED: MetFORMIN HCL 500 MG TABLET PO SCH (07:00)
[2019-08-06] MEDS ORDERED: LOPERAMIDE HCL 2 MG CAPSULE PO PRN (07:15)
[2019-08-06] MEDS ORDERED: OMEPRAZOLE 20 MG CAPSULE PO PRN (07:15)
[2019-08-06] MEDS ORDERED: MAGNESIUM HYDROXIDE SUSPENSION 30 ML UDCUP PO PRN (07:15)
[2019-08-06] MEDS ORDERED: BENZOCAINE/MENTHOL LOZENGE MM PRN (07:15)
[2019-08-06] MEDS ORDERED: ONDANSETRON HCL 4 MG TABLET PO PRN (07:15)
[2019-08-06] MEDS ORDERED: PETROLATUM,WHITE 28 GM JELLY TP PRN (07:15)
[2019-08-06] MEDS ORDERED: IBUPROFEN 600 MG TABLET PO PRN (07:15)
[2019-08-06] MEDS ORDERED: CloNIDine HCL 0.1 MG TABLET PO PRN (07:15)
[2019-08-06] MEDS ORDERED: ALBUTEROL SULFATE HFA 90 MCG/PUFF 8 GM INHALER IH PRN (07:15)
[2019-08-06] MEDS ORDERED: DOCUSATE SODIUM 100 MG CAPSULE PO PRN (07:15)
[2019-08-06] MEDS ORDERED: BACITRACIN 28.4 GM OINTMENT TP PRN (07:15)
[2019-08-06] MEDS: GlipiZIDE 5 MG TABLET PO SCH ×2 (07:20→16:44)
[2019-08-06] MEDS: MetFORMIN HCL 500 MG TABLET PO SCH ×2 (07:22→16:44)
[2019-08-06 07:46] LABS: BASOPHILS % (AUTO) 0.5 % (0.0-2.0); EOSINOPHILS % (AUTO) 2.1 % (1.0-6.0); HEMATOCRIT 34.1 % (36-46); HEMOGLOBIN 12.1 g/dL (12.0-16.0); LYMPHOCYTES # (AUTO) 3.1 K/uL (1.0-4.8); LYMPHOCYTES % (AUTO) 41.6 % (22.0-44.0); MEAN CORPUSCULAR HEMOGLOBIN 30.5 pg (26.0-34.0); MEAN CORPUSCULAR HGB CONC 35.6 G/dL (31.0-37.0); MEAN CORPUSCULAR VOLUME 86 fL (80-100); MONOCYTES # (AUTO) 0.4 K/uL (0.1-1.0); MONOCYTES % (AUTO) 5.1 % (2.0-9.0); NEUTROPHILS # (AUTO) 3.7 K/uL (1.8-7.7); NEUTROPHILS % (AUTO) 50.7 % (40.0-70.0); PLATELET COUNT (AUTO) 343 K/uL (150-450); RED BLOOD CELL COUNT(AUTO) 3.98 MIL/uL (4.00-5.20); RED CELL DISTRIBUTION WIDTH 13.1 % (11.5-14.5)
[2019-08-06 08:02] LABS: HEMOGLOBIN A1C 8.3 % (3.8-5.6)
[2019-08-06 08:06] LABS: ALANINE AMINOTRANSFERASE 89 U/L (12-78); ALBUMIN 3.6 g/dL (3.4-5.0); ALKALINE PHOSPHATASE 65 U/L (46-116); ANION GAP 12 mmol/L (8-16); ASPARTATE AMINOTRANSFERASE 30 U/L (15-37); BILIRUBIN,TOTAL 0.6 mg/dL (0.1-1.0); CALCIUM, TOTAL 8.5 mg/dL (8.8-10.5); CARBON DIOXIDE 24 mmol/L (22-29); CHLORIDE 103 mmol/L (98-107); CHOL/HDL RATIO 4.5 (3.9-5.7); CHOLESTEROL 122 mg/dL (131-200); CREATININE 0.67 mg/dL (0.60-1.30); FREE T4 (FREE THYROXINE) 1.06 ng/dL (0.76-1.46); GLOMERULAR FILTR. RATE CALC > 60 mL/min (>60); GLUCOSE,RANDOM 122 mg/dL (70-110); HCG,QUANTITATIVE 1 mIU/mL (0-6); HDL CHOLESTEROL 27 mg/dL (40-60); LDL CHOL (CALC.) 80 mg/dL (0-130); POTASSIUM 3.2 mmol/L (3.5-5.1); SODIUM SERUM 139 mmol/L (136-145); THYROID STIMULATING HORMONE 1.77 uIU/mL (0.36-3.74); TOTAL PROTEIN, SERUM 7.2 g/dL (6.4-8.2); TRIGLYCERIDES 77 mg/dL (15-150); UREA NITROGEN, BLOOD 7 mg/dL (7-18)
[2019-08-06 08:17] VITALS: BP 123/84
[2019-08-06 11:44] LABS: GLUCOMETER DEV NAME(LOC) BV2S.; GLUCOSE,POINT OF CARE 118 MG/DL (70-110)
[2019-08-06 16:11] VITALS: BP 112/72
[2019-08-06] MEDS: BENZTROPINE MESYLATE 1 MG TABLET PO SCH (16:44)
[2019-08-06 16:59] LABS: GLUCOMETER DEV NAME(LOC) BV2S.; GLUCOSE,POINT OF CARE 175 MG/DL (70-110)
[2019-08-06] MEDS ORDERED: QUEtiapine FUMARATE 300 MG TABLET PO SCH (17:00)
[2019-08-06] MEDS ORDERED: POTASSIUM CHLORIDE 20 MEQ ER TABLET PO ONE (17:00)
[2019-08-06] MEDS: INSULIN LISPRO 100 UNITS/ML SQ PRN (18:27)
[2019-08-06] MEDS: ARIPiprazole 15 MG TABLET PO SCH (20:26)
[2019-08-06] MEDS: QUEtiapine FUMARATE 300 MG TABLET PO SCH (20:27)
[2019-08-06 21:17] LABS: GLUCOMETER DEV NAME(LOC) BV2S.; GLUCOSE,POINT OF CARE 123 MG/DL (70-110)
[2019-08-07 00:37] VITALS: BP 128/81
[2019-08-07 06:14] LABS: GLUCOMETER DEV NAME(LOC) BV2S.; GLUCOSE,POINT OF CARE 130 MG/DL (70-110)
[2019-08-07] MEDS: GlipiZIDE 5 MG TABLET PO SCH ×2 (06:32→16:46)
[2019-08-07] MEDS: MetFORMIN HCL 500 MG TABLET PO SCH ×2 (06:33→17:25)
[2019-08-07] MEDS: BENZTROPINE MESYLATE 1 MG TABLET PO SCH ×2 (08:33→16:45)
[2019-08-07 09:43] VITALS: BP 104/60
[2019-08-07 11:01] LABS: GLUCOMETER DEV NAME(LOC) BV2S.; GLUCOSE,POINT OF CARE 128 MG/DL (70-110)
[2019-08-07] MEDS: ACETAMINOPHEN 325 MG TABLET PO PRN (13:10)
[2019-08-07 16:59] LABS: GLUCOMETER DEV NAME(LOC) BV2S.; GLUCOSE,POINT OF CARE 128 MG/DL (70-110)
[2019-08-07 17:12] VITALS: BP 130/78
[2019-08-07] MEDS: ARIPiprazole 15 MG TABLET PO SCH (20:30)
[2019-08-07 20:40] LABS: GLUCOMETER DEV NAME(LOC) BV2S.; GLUCOSE,POINT OF CARE 112 MG/DL (70-110)
[2019-08-07] MEDS: QUEtiapine FUMARATE 300 MG TABLET PO SCH (21:25)
[2019-08-08 00:48] VITALS: BP 102/63
[2019-08-08] MEDS: HALOPERIDOL 5 MG TABLET PO PRN (03:28)
[2019-08-08 06:24] LABS: GLUCOMETER DEV NAME(LOC) BV2S.; GLUCOSE,POINT OF CARE 106 MG/DL (70-110)
[2019-08-08] MEDS: GlipiZIDE 5 MG TABLET PO SCH ×2 (06:37→16:43)
[2019-08-08] MEDS: MetFORMIN HCL 500 MG TABLET PO SCH ×2 (06:37→17:08)
[2019-08-08] MEDS: BENZTROPINE MESYLATE 1 MG TABLET PO SCH ×2 (08:20→17:08)
[2019-08-08 09:38] VITALS: BP 108/67
[2019-08-08] MEDS: INSULIN LISPRO 100 UNITS/ML SQ PRN ×2 (10:55→16:48)
[2019-08-08 11:06] LABS: GLUCOMETER DEV NAME(LOC) BV2S.; GLUCOSE,POINT OF CARE 173 MG/DL (70-110)
[2019-08-08 16:00] VITALS: BP 107/71
[2019-08-08 17:24] LABS: GLUCOMETER DEV NAME(LOC) BV2S.; GLUCOSE,POINT OF CARE 158 MG/DL (70-110)
[2019-08-08] MEDS: ARIPiprazole 15 MG TABLET PO SCH (20:11)
[2019-08-08] MEDS: QUEtiapine FUMARATE 300 MG TABLET PO SCH (20:11)
[2019-08-08 20:58] LABS: GLUCOMETER DEV NAME(LOC) BV2S.; GLUCOSE,POINT OF CARE 128 MG/DL (70-110)
[2019-08-08] MEDS: MAG HYDROX/AL HYDROX/SIMETH ES 30 ML SUSPENSION UDCUP PO PRN (22:14)
[2019-08-09 01:11] VITALS: BP 104/60
[2019-08-09] MEDS: MetFORMIN HCL 500 MG TABLET PO SCH ×2 (06:20→16:55)
[2019-08-09] MEDS: GlipiZIDE 5 MG TABLET PO SCH ×2 (06:20→16:29)
[2019-08-09 06:26] LABS: GLUCOMETER DEV NAME(LOC) BV2S.; GLUCOSE,POINT OF CARE 118 MG/DL (70-110)
[2019-08-09 08:14] LABS: APPEARANCE,URINE CLEAR (CLEAR); BILIRUBIN,URINE NEGATIVE (NEGATIVE); GLUCOSE, URINE (UA) NEGATIVE (NEGATIVE); KETONES,URINE NEGATIVE (NEGATIVE); LEUKOCYTE ESTERASE ,URINE NEGATIVE (NEGATIVE); NITRATE,URINE NEGATIVE (NEGATIVE); OCCULT BLOOD,URINE NEGATIVE (NEGATIVE); PROTEIN,URINE NEGATIVE (NEGATIVE); UROBILINOGEN,URINE 0.2 mg/dL (<=1.0)
[2019-08-09] MEDS: BENZTROPINE MESYLATE 1 MG TABLET PO SCH ×2 (08:21→16:56)
[2019-08-09 08:22] LABS: AMPHET/METH SCREEN,URINE NEGATIVE (NEGATIVE); BARBITURATE SCREEN, URINE NEGATIVE (NEGATIVE); BENZODIAZEPINES SCREEN,URINE NEGATIVE (NEGATIVE); CANNABINOID SCREEN,URINE NEGATIVE (NEGATIVE); COCAINE SCREEN,URINE NEGATIVE (NEGATIVE); METHADONE SCREEN, URINE NEGATIVE (NEGATIVE); OPIATE SCREEN,URINE NEGATIVE (NEGATIVE)
[2019-08-09 08:38] LABS: PHENCYCLIDINE SCREEN,URINE NEGATIVE (NEGATIVE)
[2019-08-09 08:41] VITALS: BP 130/76
[2019-08-09] MEDS: INSULIN LISPRO 100 UNITS/ML SQ PRN ×2 (10:57→16:33)
[2019-08-09 11:15] LABS: GLUCOMETER DEV NAME(LOC) BV2S.; GLUCOSE,POINT OF CARE 147 MG/DL (70-110)
[2019-08-09] MEDS: HALOPERIDOL 5 MG TABLET PO PRN (13:32)
[2019-08-09 16:30] VITALS: BP 100/57
[2019-08-09 16:48] LABS: GLUCOMETER DEV NAME(LOC) BV2S.; GLUCOSE,POINT OF CARE 153 MG/DL (70-110)
[2019-08-09] MEDS: ARIPiprazole 15 MG TABLET PO SCH (20:09)
[2019-08-09] MEDS: QUEtiapine FUMARATE 300 MG TABLET PO SCH (20:13)
[2019-08-09 20:50] LABS: GLUCOMETER DEV NAME(LOC) BV2S.; GLUCOSE,POINT OF CARE 118 MG/DL (70-110)
[2019-08-10 00:25] VITALS: BP 114/65
[2019-08-10] MEDS: LORazepam 2 MG TABLET PO PRN ×3 (04:47→16:37)
[2019-08-10 04:48] VITALS: BP 125/73
[2019-08-10] MEDS: GlipiZIDE 5 MG TABLET PO SCH ×2 (06:22→16:34)
[2019-08-10] MEDS: MetFORMIN HCL 500 MG TABLET PO SCH ×2 (06:22→16:34)
[2019-08-10 06:33] LABS: GLUCOMETER DEV NAME(LOC) BV2S.; GLUCOSE,POINT OF CARE 126 MG/DL (70-110)
[2019-08-10 08:18] VITALS: BP 107/63
[2019-08-10] MEDS: BENZTROPINE MESYLATE 1 MG TABLET PO SCH ×2 (08:46→16:34)
[2019-08-10] MEDS: HALOPERIDOL 5 MG TABLET PO PRN ×2 (10:01→16:43)
[2019-08-10] MEDS: ACETAMINOPHEN 325 MG TABLET PO PRN (10:02)
[2019-08-10 10:38] LABS: GLUCOMETER DEV NAME(LOC) BV2S.; GLUCOSE,POINT OF CARE 126 MG/DL (70-110)
[2019-08-10 16:11] VITALS: BP 111/74
[2019-08-10 16:44] LABS: GLUCOMETER DEV NAME(LOC) BV2S.; GLUCOSE,POINT OF CARE 215 MG/DL (70-110)
[2019-08-10] MEDS: INSULIN LISPRO 100 UNITS/ML SQ PRN (17:10)
[2019-08-10] MEDS: QUEtiapine FUMARATE 300 MG TABLET PO SCH (20:01)
[2019-08-10] MEDS: ARIPiprazole 15 MG TABLET PO SCH (20:01)
[2019-08-10 20:13] LABS: GLUCOMETER DEV NAME(LOC) BV2S.; GLUCOSE,POINT OF CARE 114 MG/DL (70-110)
[2019-08-11 05:34] VITALS: BP 110/70
[2019-08-11] MEDS: MetFORMIN HCL 500 MG TABLET PO SCH ×2 (06:32→16:08)
[2019-08-11] MEDS: GlipiZIDE 5 MG TABLET PO SCH ×2 (06:33→16:08)
[2019-08-11 06:37] LABS: GLUCOMETER DEV NAME(LOC) BV2S.; GLUCOSE,POINT OF CARE 101 MG/DL (70-110)
[2019-08-11 08:29] VITALS: BP 114/75
[2019-08-11] MEDS: BENZTROPINE MESYLATE 1 MG TABLET PO SCH ×2 (09:03→16:08)
[2019-08-11 11:02] LABS: GLUCOMETER DEV NAME(LOC) BV2S.; GLUCOSE,POINT OF CARE 91 MG/DL (70-110)
[2019-08-11 16:12] VITALS: BP 111/75
[2019-08-11 16:19] LABS: GLUCOMETER DEV NAME(LOC) BV2S.; GLUCOSE,POINT OF CARE 124 MG/DL (70-110)
[2019-08-11] MEDS: HALOPERIDOL 5 MG TABLET PO PRN (16:23)
[2019-08-11] MEDS: ARIPiprazole 15 MG TABLET PO SCH (20:06)
[2019-08-11] MEDS: QUEtiapine FUMARATE 300 MG TABLET PO SCH (21:00)
[2019-08-12 00:15] VITALS: BP 110/72
[2019-08-12 04:08] LABS: GLUCOMETER DEV NAME(LOC) BV2S.; GLUCOSE,POINT OF CARE 98 MG/DL (70-110)
[2019-08-12] MEDS: MetFORMIN HCL 500 MG TABLET PO SCH ×2 (06:21→16:45)
[2019-08-12] MEDS: GlipiZIDE 5 MG TABLET PO SCH ×2 (06:21→16:27)
[2019-08-12 06:45] LABS: GLUCOMETER DEV NAME(LOC) BV2S.; GLUCOSE,POINT OF CARE 122 MG/DL (70-110)
[2019-08-12 08:10] VITALS: BP 117/67
[2019-08-12] MEDS: BENZTROPINE MESYLATE 1 MG TABLET PO SCH ×2 (08:24→16:45)
[2019-08-12 11:49] LABS: GLUCOMETER DEV NAME(LOC) BV2S.; GLUCOSE,POINT OF CARE 123 MG/DL (70-110)
[2019-08-12] MEDS: ACETAMINOPHEN 325 MG TABLET PO PRN ×2 (14:17→21:47)
[2019-08-12 16:00] VITALS: BP 136/78
[2019-08-12] MEDS: LITHIUM CARBONATE 300 MG CAPSULE PO SCH (16:45)
[2019-08-12 17:06] LABS: GLUCOMETER DEV NAME(LOC) BV2S.; GLUCOSE,POINT OF CARE 137 MG/DL (70-110)
[2019-08-12] MEDS: QUEtiapine FUMARATE 300 MG TABLET PO SCH ×2 (20:19→20:42)
[2019-08-12] MEDS: ARIPiprazole 15 MG TABLET PO SCH (20:19)
[2019-08-12 21:06] LABS: GLUCOMETER DEV NAME(LOC) BV2S.; GLUCOSE,POINT OF CARE 105 MG/DL (70-110)
[2019-08-13 00:34] VITALS: BP 118/72
[2019-08-13] MEDS: MetFORMIN HCL 500 MG TABLET PO SCH ×2 (06:51→16:51)
[2019-08-13] MEDS: GlipiZIDE 5 MG TABLET PO SCH ×2 (06:51→18:01)
[2019-08-13 06:58] LABS: GLUCOMETER DEV NAME(LOC) BV2S.; GLUCOSE,POINT OF CARE 126 MG/DL (70-110)
[2019-08-13] MEDS: BENZTROPINE MESYLATE 1 MG TABLET PO SCH ×2 (08:36→16:52)
[2019-08-13] MEDS: LITHIUM CARBONATE 300 MG CAPSULE PO SCH ×2 (08:36→16:51)
[2019-08-13 09:15] VITALS: BP 105/65
[2019-08-13 14:18] LABS: GLUCOMETER DEV NAME(LOC) BV2S.; GLUCOSE,POINT OF CARE 100 MG/DL (70-110)
[2019-08-13 16:08] LABS: GLUCOMETER DEV NAME(LOC) BV2S.; GLUCOSE,POINT OF CARE 155 MG/DL (70-110)
[2019-08-13 16:29] VITALS: BP 107/73
[2019-08-13] MEDS: INSULIN LISPRO 100 UNITS/ML SQ PRN (16:55)
[2019-08-13] MEDS: ARIPiprazole 15 MG TABLET PO SCH (21:00)
[2019-08-13] MEDS: QUEtiapine FUMARATE 300 MG TABLET PO SCH (21:00)
[2019-08-13 22:38] LABS: GLUCOMETER DEV NAME(LOC) BV2S.; GLUCOSE,POINT OF CARE 124 MG/DL (70-110)
[2019-08-14 04:05] VITALS: BP 99/69
[2019-08-14] MEDS: MetFORMIN HCL 500 MG TABLET PO SCH ×2 (06:44→16:54)
[2019-08-14] MEDS: GlipiZIDE 5 MG TABLET PO SCH ×2 (06:44→16:44)
[2019-08-14 07:08] LABS: GLUCOMETER DEV NAME(LOC) BV2S.; GLUCOSE,POINT OF CARE 138 MG/DL (70-110)
[2019-08-14] MEDS: LITHIUM CARBONATE 300 MG CAPSULE PO SCH ×2 (08:05→16:44)
[2019-08-14] MEDS: BENZTROPINE MESYLATE 1 MG TABLET PO SCH ×2 (08:05→16:44)
[2019-08-14 08:53] VITALS: BP 118/75
[2019-08-14] MEDS: MAG HYDROX/AL HYDROX/SIMETH ES 30 ML SUSPENSION UDCUP PO PRN (12:45)
[2019-08-14 13:29] LABS: GLUCOMETER DEV NAME(LOC) BV2S.; GLUCOSE,POINT OF CARE 125 MG/DL (70-110)
[2019-08-14 16:26] VITALS: BP 102/60
[2019-08-14 18:14] VITALS: BP 120/74
[2019-08-14] MEDS: LORazepam 2 MG TABLET PO PRN (18:14)
[2019-08-14 19:01] LABS: GLUCOMETER DEV NAME(LOC) BV2S.; GLUCOSE,POINT OF CARE 105 MG/DL (70-110)
[2019-08-14] MEDS: QUEtiapine FUMARATE 300 MG TABLET PO SCH (20:13)
[2019-08-14] MEDS: ARIPiprazole 15 MG TABLET PO SCH (20:13)
[2019-08-14 21:05] LABS: GLUCOMETER DEV NAME(LOC) BV2S.; GLUCOSE,POINT OF CARE 110 MG/DL (70-110)
[2019-08-15 00:51] VITALS: BP 116/65
[2019-08-15 06:22] LABS: GLUCOMETER DEV NAME(LOC) BV2S.; GLUCOSE,POINT OF CARE 95 MG/DL (70-110)
[2019-08-15] MEDS: GlipiZIDE 5 MG TABLET PO SCH ×2 (06:43→16:24)
[2019-08-15] MEDS: MetFORMIN HCL 500 MG TABLET PO SCH ×2 (06:43→16:24)
[2019-08-15] MEDS: BENZTROPINE MESYLATE 1 MG TABLET PO SCH ×2 (08:16→16:25)
[2019-08-15] MEDS: LITHIUM CARBONATE 300 MG CAPSULE PO SCH ×2 (08:16→16:25)
[2019-08-15 09:44] VITALS: BP 110/71
[2019-08-15 13:58] LABS: GLUCOMETER DEV NAME(LOC) BV2S.; GLUCOSE,POINT OF CARE 137 MG/DL (70-110)
[2019-08-15 16:00] VITALS: BP 122/79
[2019-08-15 16:48] LABS: GLUCOMETER DEV NAME(LOC) BV2S.; GLUCOSE,POINT OF CARE 159 MG/DL (70-110)
[2019-08-15] MEDS: INSULIN LISPRO 100 UNITS/ML SQ PRN (17:56)
[2019-08-15] MEDS: QUEtiapine FUMARATE 300 MG TABLET PO SCH (20:24)
[2019-08-15] MEDS: ARIPiprazole 15 MG TABLET PO SCH (20:24)
[2019-08-15 20:42] LABS: GLUCOMETER DEV NAME(LOC) BV2S.; GLUCOSE,POINT OF CARE 89 MG/DL (70-110)
[2019-08-16 05:44] VITALS: BP 101/70
[2019-08-16 06:20] LABS: GLUCOMETER DEV NAME(LOC) BV2S.; GLUCOSE,POINT OF CARE 109 MG/DL (70-110)
[2019-08-16] MEDS: MetFORMIN HCL 500 MG TABLET PO SCH ×2 (06:27→17:29)
[2019-08-16] MEDS: GlipiZIDE 5 MG TABLET PO SCH ×2 (06:27→16:44)
[2019-08-16] MEDS: BENZTROPINE MESYLATE 1 MG TABLET PO SCH ×2 (08:08→16:44)
[2019-08-16] MEDS: LITHIUM CARBONATE 300 MG CAPSULE PO SCH ×2 (08:08→16:45)
[2019-08-16 11:08] VITALS: BP 118/71
[2019-08-16 14:28] LABS: GLUCOMETER DEV NAME(LOC) BV2S.; GLUCOSE,POINT OF CARE 125 MG/DL (70-110)
[2019-08-16 16:00] VITALS: BP 107/77
[2019-08-16 17:42] LABS: GLUCOMETER DEV NAME(LOC) BV2S.; GLUCOSE,POINT OF CARE 107 MG/DL (70-110)
[2019-08-16] MEDS: ARIPiprazole 15 MG TABLET PO SCH (20:05)
[2019-08-16] MEDS: QUEtiapine FUMARATE 300 MG TABLET PO SCH (20:05)
[2019-08-16 21:02] LABS: GLUCOMETER DEV NAME(LOC) BV2S.; GLUCOSE,POINT OF CARE 120 MG/DL (70-110)
[2019-08-17 00:40] VITALS: BP 110/72
[2019-08-17 06:19] LABS: GLUCOMETER DEV NAME(LOC) BV2S.; GLUCOSE,POINT OF CARE 115 MG/DL (70-110)
[2019-08-17] MEDS: GlipiZIDE 5 MG TABLET PO SCH (06:41)
[2019-08-17] MEDS: MetFORMIN HCL 500 MG TABLET PO SCH (06:42)
[2019-08-17] MEDS: LITHIUM CARBONATE 300 MG CAPSULE PO SCH (08:12)
[2019-08-17] MEDS: BENZTROPINE MESYLATE 1 MG TABLET PO SCH (08:12)
[2019-08-17 08:22] VITALS: BP 125/74
[2019-08-17 11:19] LABS: GLUCOMETER DEV NAME(LOC) BV2S.; GLUCOSE,POINT OF CARE 101 MG/DL (70-110)
[2019-08-17] MEDS ORDERED: METF-960 PO (14:47)
[2019-08-17] MEDS ORDERED: QUET300T2 PO (14:50)
[2019-08-17] MEDS ORDERED: LITH300C3 PO (14:50)
== END 2019-08-17 15:30 | disposition home or self-care (01) | DRG 885 ==
LOC: B2S 18:43
PROVIDERS: ADMIT Psychiatry & Neurology Psychiatry; ATTEND Psychiatry & Neurology Psychiatry
DX: F20.0 Paranoid schizophrenia (principal); R45.851 Suicidal ideations; E11.9 Type 2 diabetes mellitus without complications; Z59.0 Homelessness; E55.9 Vitamin D deficiency, unspecified; F41.9 Anxiety disorder, unspecified; K21.9 Gastro-esophageal reflux disease without esophagitis; K59.00 Constipation, unspecified; D50.9 Iron deficiency anemia, unspecified; G47.00 Insomnia, unspecified
CPT/HCPCS: 80307; 83036; 84132; 84439; 84443; 87081

== ENCOUNTER 2019-09-19 18:08 | Inpatient (IN) | payer MEDICAID ==
[~2019-09-19] VITALS: Ht 170.2 cm; Wt 86.2 kg
[~2019-09-19 18:08] MED LIST changes: -GLIP5TAB11 PO; +LITH300C3 PO
[2019-09-19] MEDS ORDERED: HALOPERIDOL 5 MG TABLET PO PRN (18:30)
[2019-09-19] MEDS ORDERED: ZOLPIDEM TARTRATE 10 MG TABLET PO PRN (18:30)
[2019-09-19 19:29] VITALS: BP 118/74
[2019-09-19 21:17] LABS: GLUCOMETER DEV NAME(LOC) BV3S.; GLUCOSE,POINT OF CARE 149 MG/DL (70-110)
[2019-09-20 01:36] VITALS: BP 115/62
[2019-09-20 06:13] LABS: GLUCOMETER DEV NAME(LOC) BV3S.; GLUCOSE,POINT OF CARE 175 MG/DL (70-110)
[2019-09-20] MEDS: MetFORMIN HCL 500 MG TABLET PO SCH ×2 (06:47→16:33)
[2019-09-20] MEDS ORDERED: IBUPROFEN 400 MG TABLET PO PRN (07:30)
[2019-09-20] MEDS ORDERED: NICOTINE 14 MG/24 HOUR PATCH TD PRN (07:30)
[2019-09-20] MEDS ORDERED: CloNIDine HCL 0.1 MG TABLET PO PRN (07:30)
[2019-09-20] MEDS ORDERED: LOPERAMIDE HCL 2 MG CAPSULE PO PRN (07:30)
[2019-09-20] MEDS ORDERED: GuaiFENesin/D-METHORPHAN [SUGAR-FREE] 200-20MG/10 ML SYRUP UDCUP PO PRN (07:30)
[2019-09-20] MEDS ORDERED: ALBUTEROL SULFATE HFA 90 MCG/PUFF 8 GM INHALER IH PRN (07:30)
[2019-09-20] MEDS ORDERED: MAGNESIUM HYDROXIDE SUSPENSION 30 ML UDCUP PO PRN (07:30)
[2019-09-20] MEDS ORDERED: PETROLATUM,WHITE 28 GM JELLY TP PRN (07:30)
[2019-09-20] MEDS ORDERED: ONDANSETRON HCL 4 MG TABLET PO PRN (07:30)
[2019-09-20] MEDS ORDERED: MAG HYDROX/AL HYDROX/SIMETH ES 30 ML SUSPENSION UDCUP PO PRN (07:30)
[2019-09-20] MEDS ORDERED: DOCUSATE SODIUM 100 MG CAPSULE PO PRN (07:30)
[2019-09-20] MEDS ORDERED: ACETAMINOPHEN 325 MG TABLET PO PRN (07:30)
[2019-09-20 08:12] LABS: BASOPHILS % (AUTO) 0.8 % (0.0-2.0); HEMATOCRIT 36.2 % (36-46); HEMOGLOBIN 12.9 g/dL (12.0-16.0); LYMPHOCYTES # (AUTO) 3.1 K/uL (1.0-4.8); LYMPHOCYTES % (AUTO) 36.1 % (22.0-44.0); MEAN CORPUSCULAR HEMOGLOBIN 31.3 pg (26.0-34.0); MEAN CORPUSCULAR HGB CONC 35.6 G/dL (31.0-37.0); MEAN CORPUSCULAR VOLUME 88 fL (80-100); MONOCYTES # (AUTO) 0.5 K/uL (0.1-1.0); MONOCYTES % (AUTO) 6.1 % (2.0-9.0); NEUTROPHILS # (AUTO) 4.7 K/uL (1.8-7.7); PLATELET COUNT (AUTO) 357 K/uL (150-450); RED BLOOD CELL COUNT(AUTO) 4.12 MIL/uL (4.00-5.20); RED CELL DISTRIBUTION WIDTH 13.2 % (11.5-14.5)
[2019-09-20 08:27] VITALS: BP 118/72
[2019-09-20 08:31] LABS: APPEARANCE,URINE CLEAR (CLEAR); BILIRUBIN,URINE NEGATIVE (NEGATIVE); GLUCOSE, URINE (UA) 250 mg/dL (NEGATIVE); KETONES,URINE NEGATIVE (NEGATIVE); LEUKOCYTE ESTERASE ,URINE NEGATIVE (NEGATIVE); NITRATE,URINE NEGATIVE (NEGATIVE); OCCULT BLOOD,URINE NEGATIVE (NEGATIVE); PROTEIN,URINE NEGATIVE (NEGATIVE)
[2019-09-20 08:34] LABS: HEMOGLOBIN A1C 6.7 % (3.8-5.6)
[2019-09-20 08:36] LABS: AMPHET/METH SCREEN,URINE NEGATIVE (NEGATIVE); BARBITURATE SCREEN, URINE NEGATIVE (NEGATIVE); BENZODIAZEPINES SCREEN,URINE NEGATIVE (NEGATIVE); CANNABINOID SCREEN,URINE NEGATIVE (NEGATIVE); COCAINE SCREEN,URINE NEGATIVE (NEGATIVE); METHADONE SCREEN, URINE NEGATIVE (NEGATIVE); OPIATE SCREEN,URINE NEGATIVE (NEGATIVE); PHENCYCLIDINE SCREEN,URINE NEGATIVE (NEGATIVE)
[2019-09-20 08:47] LABS: BACTERIA,URINE None Seen /HPF (None Seen); RBC,URINE 0-2 /HPF (0-2); SQUAMOUS EPITHELIAL CELL,UR Moderate /LPF (None Seen); WBC,URINE 0-2 /HPF (0-5)
[2019-09-20 08:47] LABS: ALANINE AMINOTRANSFERASE 70 U/L (12-78); ALBUMIN 3.8 g/dL (3.4-5.0); ALKALINE PHOSPHATASE 63 U/L (46-116); ANION GAP 9 mmol/L (8-16); ASPARTATE AMINOTRANSFERASE 23 U/L (15-37); BILIRUBIN,TOTAL 0.3 mg/dL (0.1-1.0); CALCIUM, TOTAL 8.9 mg/dL (8.8-10.5); CARBON DIOXIDE 25 mmol/L (22-29); CHLORIDE 101 mmol/L (98-107); CHOL/HDL RATIO 4.9 (3.9-5.7); CHOLESTEROL 156 mg/dL (131-200); CREATININE 0.86 mg/dL (0.60-1.30); GLOMERULAR FILTR. RATE CALC > 60 mL/min (>60); GLUCOSE,RANDOM 230 mg/dL (70-110); HDL CHOLESTEROL 32 mg/dL (40-60); POTASSIUM 4.2 mmol/L (3.5-5.1); SODIUM SERUM 135 mmol/L (136-145); TOTAL PROTEIN, SERUM 7.6 g/dL (6.4-8.2); TRIGLYCERIDES 151 mg/dL (15-150); UREA NITROGEN, BLOOD 8 mg/dL (7-18)
[2019-09-20 08:48] LABS: HCG,QUANTITATIVE < 1 mIU/mL (0-6); LDL CHOL (CALC.) 94 mg/dL (0-130); THYROID STIMULATING HORMONE 2.32 uIU/mL (0.36-3.74)
[2019-09-20 16:00] LABS: GLUCOMETER DEV NAME(LOC) BV3S.; GLUCOSE,POINT OF CARE 189 MG/DL (70-110)
[2019-09-20 16:30] VITALS: BP 109/72
[2019-09-20] MEDS ORDERED: MetFORMIN HCL 500 MG TABLET PO SCH (17:00)
[2019-09-20] MEDS: LORazepam 1 MG TABLET PO PRN (18:31)
[2019-09-21 04:37] VITALS: BP 110/68
[2019-09-21 06:00] LABS: GLUCOMETER DEV NAME(LOC) BV3S.; GLUCOSE,POINT OF CARE 157 MG/DL (70-110)
[2019-09-21] MEDS: MetFORMIN HCL 500 MG TABLET PO SCH ×2 (06:34→16:38)
[2019-09-21 08:03] VITALS: BP 120/64
[2019-09-21 16:01] VITALS: BP 113/64
[2019-09-21 16:50] LABS: GLUCOMETER DEV NAME(LOC) BV3S.; GLUCOSE,POINT OF CARE 167 MG/DL (70-110)
[2019-09-21] MEDS: LORazepam 1 MG TABLET PO PRN (17:56)
[2019-09-21] MEDS: LITHIUM CARBONATE 300 MG CAPSULE PO SCH (20:06)
[2019-09-21] MEDS: QUEtiapine FUMARATE 300 MG TABLET PO SCH (20:06)
[2019-09-22 00:16] VITALS: BP 110/68
[2019-09-22] MEDS: MetFORMIN HCL 500 MG TABLET PO SCH ×2 (06:14→16:44)
[2019-09-22 06:48] LABS: GLUCOMETER DEV NAME(LOC) BV3S.; GLUCOSE,POINT OF CARE 145 MG/DL (70-110)
[2019-09-22 08:13] VITALS: BP 122/73
[2019-09-22 16:01] VITALS: BP 114/66
[2019-09-22 16:16] LABS: GLUCOMETER DEV NAME(LOC) BV3S.; GLUCOSE,POINT OF CARE 171 MG/DL (70-110)
[2019-09-22] MEDS: LITHIUM CARBONATE 300 MG CAPSULE PO SCH (20:50)
[2019-09-22] MEDS: QUEtiapine FUMARATE 300 MG TABLET PO SCH (20:51)
[2019-09-23 00:30] VITALS: BP 107/60
[2019-09-23] MEDS: MetFORMIN HCL 500 MG TABLET PO SCH ×2 (06:11→16:38)
[2019-09-23 06:30] LABS: GLUCOMETER DEV NAME(LOC) BV3S.; GLUCOSE,POINT OF CARE 120 MG/DL (70-110)
[2019-09-23 08:14] VITALS: BP 119/68
[2019-09-23 16:12] VITALS: BP 118/74
[2019-09-23 16:53] LABS: GLUCOMETER DEV NAME(LOC) BV3S.; GLUCOSE,POINT OF CARE 162 MG/DL (70-110)
[2019-09-23] MEDS: QUEtiapine FUMARATE 300 MG TABLET PO SCH (20:13)
[2019-09-23] MEDS: LITHIUM CARBONATE 300 MG CAPSULE PO SCH (20:13)
[2019-09-24 00:33] VITALS: BP 109/71
[2019-09-24] MEDS: MetFORMIN HCL 500 MG TABLET PO SCH ×2 (06:20→16:13)
[2019-09-24 06:26] LABS: GLUCOMETER DEV NAME(LOC) BV3S.; GLUCOSE,POINT OF CARE 128 MG/DL (70-110)
[2019-09-24 08:09] VITALS: BP 117/64
[2019-09-24 16:01] VITALS: BP 116/65
[2019-09-24 16:30] LABS: GLUCOMETER DEV NAME(LOC) BV3S.; GLUCOSE,POINT OF CARE 138 MG/DL (70-110)
[2019-09-24] MEDS: LITHIUM CARBONATE 300 MG CAPSULE PO SCH (19:57)
[2019-09-24] MEDS: QUEtiapine FUMARATE 300 MG TABLET PO SCH (19:58)
[2019-09-25 04:59] VITALS: BP 101/77
[2019-09-25 06:21] LABS: GLUCOMETER DEV NAME(LOC) BV2S.; GLUCOSE,POINT OF CARE 125 MG/DL (70-110)
[2019-09-25] MEDS: MetFORMIN HCL 500 MG TABLET PO SCH ×2 (06:50→16:49)
[2019-09-25 08:49] VITALS: BP 102/71
[2019-09-25 16:37] LABS: GLUCOMETER DEV NAME(LOC) BV2S.; GLUCOSE,POINT OF CARE 113 MG/DL (70-110)
[2019-09-25 17:28] VITALS: BP 101/69
[2019-09-25] MEDS: QUEtiapine FUMARATE 300 MG TABLET PO SCH (20:18)
[2019-09-25] MEDS: LITHIUM CARBONATE 300 MG CAPSULE PO SCH (20:18)
[2019-09-26 06:02] VITALS: BP 108/71
[2019-09-26 06:06] LABS: GLUCOMETER DEV NAME(LOC) BV2S.; GLUCOSE,POINT OF CARE 120 MG/DL (70-110)
[2019-09-26] MEDS: MetFORMIN HCL 500 MG TABLET PO SCH ×2 (06:59→16:25)
[2019-09-26 09:57] VITALS: BP 102/65
[2019-09-26 16:26] LABS: GLUCOMETER DEV NAME(LOC) BV2S.; GLUCOSE,POINT OF CARE 130 MG/DL (70-110)
[2019-09-26 16:27] VITALS: BP 109/68
[2019-09-26] MEDS: LITHIUM CARBONATE 300 MG CAPSULE PO SCH (20:14)
[2019-09-26] MEDS: QUEtiapine FUMARATE 300 MG TABLET PO SCH (20:14)
[2019-09-27 00:08] VITALS: BP 106/61
[2019-09-27] MEDS: MetFORMIN HCL 500 MG TABLET PO SCH (06:00)
[2019-09-27 06:22] LABS: GLUCOMETER DEV NAME(LOC) BV2S.; GLUCOSE,POINT OF CARE 121 MG/DL (70-110)
[2019-09-27 08:13] VITALS: BP 111/90
[2019-09-27] MEDS ORDERED: LITH300C3 PO (12:57)
== END 2019-09-27 14:30 | disposition home or self-care (01) | DRG 885 ==
LOC: B3A 18:18 → B2S 09-24 20:30
PROVIDERS: ADMIT Psychiatry & Neurology Psychiatry; ATTEND Psychiatry & Neurology Psychiatry
DX: F20.0 Paranoid schizophrenia (principal); R45.851 Suicidal ideations; E11.9 Type 2 diabetes mellitus without complications; K21.9 Gastro-esophageal reflux disease without esophagitis; K59.00 Constipation, unspecified; D64.9 Anemia, unspecified; F41.9 Anxiety disorder, unspecified; E55.9 Vitamin D deficiency, unspecified; E78.5 Hyperlipidemia, unspecified
CPT/HCPCS: 80307; 83036; 84436; 84443

== ENCOUNTER 2019-11-20 12:28 | Emergency (ER) | payer MEDICAID ==
[~2019-11-20] VITALS: Ht 165.1 cm; Wt 92.3 kg
[~2019-11-20 12:28] MED LIST changes: -ARIP15TA2 PO; -BENZ1TAB10 PO
[2019-11-20 13:13] LABS: BASOPHILS % (AUTO) 0.9 % (0.0-2.0); HEMOGLOBIN 13.6 g/dL (12.0-16.0); LYMPHOCYTES # (AUTO) 2.7 K/uL (1.0-4.8); LYMPHOCYTES % (AUTO) 40.7 % (22.0-44.0); MEAN CORPUSCULAR HEMOGLOBIN 30.3 pg (26.0-34.0); MEAN CORPUSCULAR HGB CONC 34.8 G/dL (31.0-37.0); MEAN CORPUSCULAR VOLUME 87 fL (80-100); MONOCYTES # (AUTO) 0.3 K/uL (0.1-1.0); MONOCYTES % (AUTO) 5.3 % (2.0-9.0); NEUTROPHILS # (AUTO) 3.3 K/uL (1.8-7.7); NEUTROPHILS % (AUTO) 50.1 % (40.0-70.0); PLATELET COUNT (AUTO) 350 K/uL (150-450); RED BLOOD CELL COUNT(AUTO) 4.47 MIL/uL (4.00-5.20); RED CELL DISTRIBUTION WIDTH 12.3 % (11.5-14.5)
[2019-11-20 13:29] LABS: ANION GAP 8 mmol/L (8-16); CALCIUM, TOTAL 9.1 mg/dL (8.8-10.5); CARBON DIOXIDE 27 mmol/L (22-29); CHLORIDE 101 mmol/L (98-107); CREATININE 0.76 mg/dL (0.60-1.30); GLOMERULAR FILTR. RATE CALC > 60 mL/min (>60); GLUCOSE,RANDOM 178 mg/dL (70-110); SODIUM SERUM 136 mmol/L (136-145); UREA NITROGEN, BLOOD 13 mg/dL (7-18)
[2019-11-20 13:40] LABS: ALANINE AMINOTRANSFERASE 120 U/L (12-78); ALBUMIN 4.1 g/dL (3.4-5.0); ALKALINE PHOSPHATASE 63 U/L (46-116); ASPARTATE AMINOTRANSFERASE 40 U/L (15-37); BILIRUBIN,TOTAL 0.4 mg/dL (0.1-1.0); HCG,QUANTITATIVE 1 mIU/mL (0-6); TOTAL PROTEIN, SERUM 7.9 g/dL (6.4-8.2)
[2019-11-20 13:44] LABS: APPEARANCE,URINE CLEAR (CLEAR); BILIRUBIN,URINE NEGATIVE (NEGATIVE); GLUCOSE, URINE (UA) NEGATIVE (NEGATIVE); KETONES,URINE NEGATIVE (NEGATIVE); LEUKOCYTE ESTERASE ,URINE NEGATIVE (NEGATIVE); NITRATE,URINE NEGATIVE (NEGATIVE); OCCULT BLOOD,URINE NEGATIVE (NEGATIVE); PROTEIN,URINE NEGATIVE (NEGATIVE)
[2019-11-20 13:51] LABS: AMPHET/METH SCREEN,URINE NEGATIVE (NEGATIVE); BARBITURATE SCREEN, URINE NEGATIVE (NEGATIVE); BENZODIAZEPINES SCREEN,URINE NEGATIVE (NEGATIVE); CANNABINOID SCREEN,URINE NEGATIVE (NEGATIVE); COCAINE SCREEN,URINE NEGATIVE (NEGATIVE); METHADONE SCREEN, URINE NEGATIVE (NEGATIVE); OPIATE SCREEN,URINE NEGATIVE (NEGATIVE)
[2019-11-20 13:52] LABS: PHENCYCLIDINE SCREEN,URINE NEGATIVE (NEGATIVE)
[2019-11-20 13:54] LABS: BACTERIA,URINE None Seen /HPF (None Seen); RBC,URINE None Seen /HPF (0-2); SQUAMOUS EPITHELIAL CELL,UR Few /LPF (None Seen); WBC,URINE 0-2 /HPF (0-5)
[2019-11-20 15:17] VITALS: BP 122/77
== END 2019-11-20 16:11 | disposition home or self-care (01) ==
LOC: EMS 12:32
DX: F20.0 Paranoid schizophrenia (principal); K76.0 Fatty (change of) liver, not elsewhere classified; E11.65 Type 2 diabetes mellitus with hyperglycemia; F32.9 Major depressive disorder, single episode, unspecified; Z79.84 Long term (current) use of oral hypoglycemic drugs
CPT/HCPCS: 36415; 80053; 80307; 81001; 84702; 85025; 99284; G0480

== ENCOUNTER 2020-02-15 12:25 | Emergency (ER) | payer MEDICAID | END 2020-02-15 13:36 | disposition left against medical advice (07) | LOC: EMS 12:33 | DX: R45.851 Suicidal ideations (principal); Z53.21 Procedure and treatment not carried out due to patient leaving prior to being seen by health care provider ==

== ENCOUNTER 2020-03-13 14:21 | Emergency (ER) | payer MEDICAID ==
[~2020-03-13] VITALS: Ht 167.6 cm; Wt 84.1 kg
[2020-03-13] MEDS ORDERED: HALOPERIDOL 5 MG TABLET PO ONE (18:15)
[2020-03-13 18:18] VITALS: BP 122/79
== END 2020-03-13 18:28 | disposition home or self-care (01) ==
LOC: EMS 14:22
DX: F20.9 Schizophrenia, unspecified (principal); F32.9 Major depressive disorder, single episode, unspecified; Z88.8 Allergy status to other drugs, medicaments and biological substances; Z79.84 Long term (current) use of oral hypoglycemic drugs
CPT/HCPCS: 99284; Z7502; Z7610

== ENCOUNTER 2020-07-28 17:14 | Inpatient (IN) | payer MEDICAID ==
[~2020-07-28] VITALS: Ht 167.6 cm; Wt 82.6 kg
[2020-07-28 18:18] LABS: COVID AG,FIA SOURCE NASAL SWAB
[2020-07-28] MEDS ORDERED: HALOPERIDOL 5 MG TABLET PO PRN (18:45)
[2020-07-28] MEDS ORDERED: ZOLPIDEM TARTRATE 10 MG TABLET PO PRN (18:45)
[2020-07-28 20:15] VITALS: BP 122/78
[2020-07-29 01:43] VITALS: BP 117/75
[2020-07-29] MEDS ORDERED: MAGNESIUM HYDROXIDE SUSPENSION 30 ML UDCUP PO PRN (06:45)
[2020-07-29] MEDS ORDERED: OMEPRAZOLE 20 MG CAPSULE PO PRN (06:45)
[2020-07-29] MEDS ORDERED: LOPERAMIDE HCL 2 MG CAPSULE PO PRN (06:45)
[2020-07-29] MEDS ORDERED: PETROLATUM,WHITE 28 GM JELLY TP PRN (06:45)
[2020-07-29] MEDS ORDERED: ACETAMINOPHEN 325 MG TABLET PO PRN (06:45)
[2020-07-29] MEDS ORDERED: GLUCAGON,HUMAN RECOMBINANT 1 MG VIAL IM PRN (06:45)
[2020-07-29] MEDS ORDERED: IBUPROFEN 600 MG TABLET PO PRN (06:45)
[2020-07-29] MEDS ORDERED: ONDANSETRON HCL 4 MG TABLET PO PRN (06:45)
[2020-07-29] MEDS ORDERED: DOCUSATE SODIUM 100 MG CAPSULE PO PRN (06:45)
[2020-07-29] MEDS ORDERED: MAG HYDROX/AL HYDROX/SIMETH ES 30 ML SUSPENSION UDCUP PO PRN (06:45)
[2020-07-29] MEDS ORDERED: BACITRACIN 28 GM OINTMENT TP PRN (06:45)
[2020-07-29] MEDS ORDERED: BENZOCAINE/MENTHOL LOZENGE PO PRN (06:45)
[2020-07-29] MEDS ORDERED: CloNIDine HCL 0.1 MG TABLET PO PRN (06:45)
[2020-07-29] MEDS ORDERED: ALBUTEROL SULFATE HFA 90 MCG/PUFF 8 GM INHALER IH PRN (06:45)
[2020-07-29] MEDS: MetFORMIN HCL 500 MG TABLET PO SCH ×2 (07:02→16:34)
[2020-07-29 08:03] LABS: BASOPHILS % (AUTO) 0.7 % (0.0-2.0); EOSINOPHILS % (AUTO) 1.7 % (1.0-6.0); HEMATOCRIT 35.1 % (36-46); LYMPHOCYTES % (AUTO) 34.6 % (22.0-44.0); MEAN CORPUSCULAR HEMOGLOBIN 29.6 pg (26.0-34.0); MEAN CORPUSCULAR HGB CONC 34.3 G/dL (31.0-37.0); MEAN CORPUSCULAR VOLUME 87 fL (80-100); MONOCYTES # (AUTO) 0.4 K/uL (0.1-1.0); MONOCYTES % (AUTO) 4.3 % (2.0-9.0); NEUTROPHILS # (AUTO) 5.1 K/uL (1.8-7.7); NEUTROPHILS % (AUTO) 58.7 % (40.0-70.0); PLATELET COUNT (AUTO) 353 K/uL (150-450); RED BLOOD CELL COUNT(AUTO) 4.06 MIL/uL (4.00-5.20); RED CELL DISTRIBUTION WIDTH 12.9 % (11.5-14.5)
[2020-07-29 08:15] LABS: HEMOGLOBIN A1C 7.1 % (3.8-5.6)
[2020-07-29 08:32] LABS: ALANINE AMINOTRANSFERASE 27 U/L (12-78); ALBUMIN 3.4 g/dL (3.4-5.0); ALKALINE PHOSPHATASE 54 U/L (46-116); ANION GAP 8 mmol/L (8-16); ASPARTATE AMINOTRANSFERASE 13 U/L (15-37); BILIRUBIN,TOTAL 0.5 mg/dL (0.1-1.0); CALCIUM, TOTAL 8.7 mg/dL (8.8-10.5); CARBON DIOXIDE 25 mmol/L (22-29); CHLORIDE 105 mmol/L (98-107); CHOL/HDL RATIO 4.2 (3.9-5.7); CHOLESTEROL 122 mg/dL (131-200); FREE T4 (FREE THYROXINE) 1.13 ng/dL (0.76-1.46); GLOMERULAR FILTR. RATE CALC > 60 mL/min (>60); GLUCOSE,RANDOM 151 mg/dL (70-110); HCG,QUANTITATIVE < 1 mIU/mL (0-6); HDL CHOLESTEROL 29 mg/dL (40-60); LDL CHOL (CALC.) 75 mg/dL (0-130); POTASSIUM 3.7 mmol/L (3.5-5.1); SODIUM SERUM 138 mmol/L (136-145); THYROID STIMULATING HORMONE 2.43 uIU/mL (0.36-3.74); TOTAL PROTEIN, SERUM 7.2 g/dL (6.4-8.2); TRIGLYCERIDES 90 mg/dL (15-150); UREA NITROGEN, BLOOD 12 mg/dL (7-18)
[2020-07-29 08:51] VITALS: BP 111/74
[2020-07-29] MEDS: INSULIN LISPRO 100 UNITS/ML SQ PRN (11:07)
[2020-07-29 11:19] LABS: GLUCOMETER DEV NAME(LOC) BV2S.; GLUCOSE,POINT OF CARE 174 MG/DL (70-110)
[2020-07-29] MEDS: LITHIUM CARBONATE 300 MG TABLET PO SCH ×2 (12:04→16:34)
[2020-07-29 16:34] VITALS: BP 113/73
[2020-07-29] MEDS: LORazepam 2 MG TABLET PO PRN (16:37)
[2020-07-29 17:07] LABS: GLUCOMETER DEV NAME(LOC) BV2S.; GLUCOSE,POINT OF CARE 143 MG/DL (70-110)
[2020-07-29] MEDS: QUEtiapine FUMARATE 300 MG TABLET PO SCH (19:11)
[2020-07-29 19:28] LABS: GLUCOMETER DEV NAME(LOC) BV2S.; GLUCOSE,POINT OF CARE 146 MG/DL (70-110)
[2020-07-30 05:18] VITALS: BP 105/61
[2020-07-30 06:34] LABS: GLUCOMETER DEV NAME(LOC) BV2S.; GLUCOSE,POINT OF CARE 145 MG/DL (70-110)
[2020-07-30] MEDS: INSULIN LISPRO 100 UNITS/ML SQ PRN ×3 (06:38→16:55)
[2020-07-30] MEDS: MetFORMIN HCL 500 MG TABLET PO SCH ×2 (06:39→16:47)
[2020-07-30 08:19] VITALS: BP 110/70
[2020-07-30] MEDS: LITHIUM CARBONATE 300 MG TABLET PO SCH ×2 (08:49→16:47)
[2020-07-30 13:32] LABS: GLUCOMETER DEV NAME(LOC) BV2S.; GLUCOSE,POINT OF CARE 151 MG/DL (70-110)
[2020-07-30 16:15] VITALS: BP 119/74
[2020-07-30 16:50] LABS: GLUCOMETER DEV NAME(LOC) BV2S.; GLUCOSE,POINT OF CARE 148 MG/DL (70-110)
[2020-07-30] MEDS: QUEtiapine FUMARATE 300 MG TABLET PO SCH (20:11)
[2020-07-30 21:04] LABS: GLUCOMETER DEV NAME(LOC) BV2S.; GLUCOSE,POINT OF CARE 116 MG/DL (70-110)
[2020-07-31] VITALS: BP 106/51
[2020-07-31 06:36] LABS: GLUCOMETER DEV NAME(LOC) BV2S.; GLUCOSE,POINT OF CARE 135 MG/DL (70-110)
[2020-07-31] MEDS: MetFORMIN HCL 500 MG TABLET PO SCH ×2 (06:55→16:48)
[2020-07-31 08:12] VITALS: BP 116/76
[2020-07-31] MEDS: LITHIUM CARBONATE 300 MG TABLET PO SCH ×2 (08:44→16:48)
[2020-07-31 10:54] LABS: GLUCOMETER DEV NAME(LOC) BV2S.; GLUCOSE,POINT OF CARE 149 MG/DL (70-110)
[2020-07-31] MEDS: INSULIN LISPRO 100 UNITS/ML SQ PRN ×2 (11:51→20:44)
[2020-07-31 16:24] VITALS: BP_SYST 101; BP_DIAS 6; BP_DIAS 60
[2020-07-31 16:26] LABS: GLUCOMETER DEV NAME(LOC) BV2S.; GLUCOSE,POINT OF CARE 125 MG/DL (70-110)
[2020-07-31 20:12] LABS: GLUCOMETER DEV NAME(LOC) BV2S.; GLUCOSE,POINT OF CARE 187 MG/DL (70-110)
[2020-07-31] MEDS: QUEtiapine FUMARATE 300 MG TABLET PO SCH (20:31)
[2020-08-01] VITALS: BP 94/57
[2020-08-01] MEDS: MetFORMIN HCL 500 MG TABLET PO SCH ×2 (06:21→16:25)
[2020-08-01 06:39] LABS: GLUCOMETER DEV NAME(LOC) BV2S.; GLUCOSE,POINT OF CARE 129 MG/DL (70-110)
[2020-08-01] MEDS: LITHIUM CARBONATE 300 MG TABLET PO SCH ×2 (08:09→16:32)
[2020-08-01 08:27] VITALS: BP 116/68
[2020-08-01 11:59] LABS: GLUCOMETER DEV NAME(LOC) BV2S.; GLUCOSE,POINT OF CARE 98 MG/DL (70-110)
[2020-08-01 16:14] VITALS: BP 116/70
[2020-08-01 16:46] LABS: GLUCOMETER DEV NAME(LOC) BV2S.; GLUCOSE,POINT OF CARE 154 MG/DL (70-110)
[2020-08-01] MEDS: INSULIN LISPRO 100 UNITS/ML SQ PRN (17:17)
[2020-08-01] MEDS: LORazepam 2 MG TABLET PO PRN (20:35)
[2020-08-01] MEDS: QUEtiapine FUMARATE 300 MG TABLET PO SCH (20:35)
[2020-08-01 21:33] LABS: GLUCOMETER DEV NAME(LOC) BV2S.; GLUCOSE,POINT OF CARE 113 MG/DL (70-110)
[2020-08-02 02:14] VITALS: BP 118/76
[2020-08-02 06:16] LABS: GLUCOMETER DEV NAME(LOC) BV2S.; GLUCOSE,POINT OF CARE 132 MG/DL (70-110)
[2020-08-02] MEDS: MetFORMIN HCL 500 MG TABLET PO SCH ×2 (06:25→16:36)
[2020-08-02 07:34] LABS: COVID AG,FIA SOURCE NASOPHARYNGEAL
[2020-08-02] MEDS: LITHIUM CARBONATE 300 MG TABLET PO SCH ×2 (08:11→16:36)
[2020-08-02 08:27] VITALS: BP 101/58
[2020-08-02 11:36] LABS: GLUCOMETER DEV NAME(LOC) BV2S.; GLUCOSE,POINT OF CARE 122 MG/DL (70-110)
[2020-08-02 16:17] LABS: GLUCOMETER DEV NAME(LOC) BV2S.; GLUCOSE,POINT OF CARE 139 MG/DL (70-110)
[2020-08-02 16:24] VITALS: BP 114/69
[2020-08-02 20:34] LABS: GLUCOMETER DEV NAME(LOC) BV2S.; GLUCOSE,POINT OF CARE 133 MG/DL (70-110)
[2020-08-02] MEDS: QUEtiapine FUMARATE 300 MG TABLET PO SCH (20:36)
[2020-08-03 01:58] VITALS: BP 105/62
[2020-08-03] MEDS: MetFORMIN HCL 500 MG TABLET PO SCH (06:49)
[2020-08-03 06:57] LABS: GLUCOMETER DEV NAME(LOC) BV2S.; GLUCOSE,POINT OF CARE 136 MG/DL (70-110)
[2020-08-03 08:17] VITALS: BP 124/61
[2020-08-03] MEDS: LITHIUM CARBONATE 300 MG TABLET PO SCH (08:58)
[2020-08-03] MEDS ORDERED: ARIPiprazole ER SUSPENSION 400 MG PRE-FILLED DUAL CHAMBER SYRINGE IM ONE (09:00)
[2020-08-03 11:19] LABS: GLUCOMETER DEV NAME(LOC) BV2S.; GLUCOSE,POINT OF CARE 109 MG/DL (70-110)
[2020-08-03] MEDS ORDERED: LITH300T PO (12:19)
== END 2020-08-03 15:20 | disposition home or self-care (01) | DRG 750 ==
LOC: B2S 19:13
PROVIDERS: ADMIT Psychiatry & Neurology Psychiatry; ATTEND Psychiatry & Neurology Psychiatry
DX: F25.9 Schizoaffective disorder, unspecified (principal); R45.851 Suicidal ideations; E11.65 Type 2 diabetes mellitus with hyperglycemia; R74.01 Elevation of levels of liver transaminase levels; F41.9 Anxiety disorder, unspecified; G47.00 Insomnia, unspecified; K21.9 Gastro-esophageal reflux disease without esophagitis; K59.00 Constipation, unspecified; E55.9 Vitamin D deficiency, unspecified; Z20.822 Contact with and (suspected) exposure to COVID-19
CPT/HCPCS: 80053; 80061; 80178; 82962; 83036; 84439; 84443; 84702; 85025; J0401

== ENCOUNTER 2020-10-19 19:04 | Inpatient (IN) | payer MEDICAID ==
[~2020-10-19] VITALS: Ht 167.6 cm; Wt 80.5 kg
[~2020-10-19 19:04] MED LIST changes: -LITH300C3 PO; +LITH300T PO
[2020-10-19 19:55] LABS: GLUCOMETER DEV NAME(LOC) POC.BV
[2020-10-19 20:26] VITALS: BP 115/74
[2020-10-19] MEDS: LITHIUM CARBONATE 300 MG TABLET PO SCH (20:55)
[2020-10-19] MEDS: ZOLPIDEM TARTRATE 10 MG TABLET PO PRN (20:55)
[2020-10-19] MEDS: QUEtiapine FUMARATE 300 MG TABLET PO SCH (21:12)
[2020-10-20 06:56] VITALS: BP 124/84
[2020-10-20] MEDS ORDERED: DOCUSATE SODIUM 100 MG CAPSULE PO PRN (07:00)
[2020-10-20] MEDS ORDERED: BACITRACIN 28 GM OINTMENT TP PRN (07:00)
[2020-10-20] MEDS ORDERED: ONDANSETRON HCL 4 MG TABLET PO PRN (07:00)
[2020-10-20] MEDS ORDERED: CloNIDine HCL 0.1 MG TABLET PO PRN (07:00)
[2020-10-20] MEDS ORDERED: PETROLATUM,WHITE 28 GM JELLY TP PRN (07:00)
[2020-10-20] MEDS ORDERED: MAG HYDROX/AL HYDROX/SIMETH ES 30 ML SUSPENSION UDCUP PO PRN (07:00)
[2020-10-20] MEDS ORDERED: IBUPROFEN 600 MG TABLET PO PRN (07:00)
[2020-10-20] MEDS ORDERED: OMEPRAZOLE 20 MG CAPSULE PO PRN (07:00)
[2020-10-20] MEDS ORDERED: GLUCAGON,HUMAN RECOMBINANT 1 MG VIAL IM PRN (07:00)
[2020-10-20] MEDS ORDERED: ACETAMINOPHEN 325 MG TABLET PO PRN (07:00)
[2020-10-20] MEDS ORDERED: BENZOCAINE/MENTHOL LOZENGE PO PRN (07:00)
[2020-10-20] MEDS ORDERED: MAGNESIUM HYDROXIDE SUSPENSION 30 ML UDCUP PO PRN (07:00)
[2020-10-20] MEDS ORDERED: ALBUTEROL SULFATE HFA 90 MCG/PUFF 8 GM INHALER IH PRN (07:00)
[2020-10-20] MEDS ORDERED: LOPERAMIDE HCL 2 MG CAPSULE PO PRN (07:00)
[2020-10-20] MEDS: MetFORMIN HCL 500 MG TABLET PO SCH ×2 (07:12→16:10)
[2020-10-20] MEDS: INSULIN LISPRO 100 UNITS/ML SQ PRN ×4 (07:15→20:28)
[2020-10-20 07:22] LABS: GLUCOMETER DEV NAME(LOC) BV3S.; GLUCOSE,POINT OF CARE 174 MG/DL (70-110)
[2020-10-20 07:52] LABS: BASOPHILS % (AUTO) 0.8 % (0.0-2.0); EOSINOPHILS % (AUTO) 2.2 % (1.0-6.0); HEMATOCRIT 35.8 % (36-46); HEMOGLOBIN 12.3 g/dL (12.0-16.0); LYMPHOCYTES # (AUTO) 2.7 K/uL (1.0-4.8); LYMPHOCYTES % (AUTO) 36.6 % (22.0-44.0); MEAN CORPUSCULAR HEMOGLOBIN 29.6 pg (26.0-34.0); MEAN CORPUSCULAR HGB CONC 34.3 G/dL (31.0-37.0); MEAN CORPUSCULAR VOLUME 86 fL (80-100); MONOCYTES # (AUTO) 0.4 K/uL (0.1-1.0); MONOCYTES % (AUTO) 5.3 % (2.0-9.0); NEUTROPHILS % (AUTO) 55.1 % (40.0-70.0); PLATELET COUNT (AUTO) 345 K/uL (150-450); RED BLOOD CELL COUNT(AUTO) 4.15 MIL/uL (4.00-5.20); RED CELL DISTRIBUTION WIDTH 13.2 % (11.5-14.5)
[2020-10-20] MEDS: LORazepam 2 MG TABLET PO PRN (08:02)
[2020-10-20] MEDS: LITHIUM CARBONATE 300 MG TABLET PO SCH ×2 (08:02→16:09)
[2020-10-20 08:08] LABS: HEMOGLOBIN A1C 7.4 % (3.8-5.6)
[2020-10-20 08:14] LABS: ALANINE AMINOTRANSFERASE 32 U/L (12-78); ALBUMIN 3.6 g/dL (3.4-5.0); ALKALINE PHOSPHATASE 54 U/L (46-116); ANION GAP 12 mmol/L (8-16); ASPARTATE AMINOTRANSFERASE 14 U/L (15-37); BILIRUBIN,TOTAL 0.6 mg/dL (0.1-1.0); CALCIUM, TOTAL 8.8 mg/dL (8.8-10.5); CARBON DIOXIDE 22 mmol/L (22-29); CHLORIDE 107 mmol/L (98-107); CHOL/HDL RATIO 4.2 (3.9-5.7); CHOLESTEROL 122 mg/dL (131-200); GLOMERULAR FILTR. RATE CALC > 60 mL/min (>60); GLUCOSE,RANDOM 154 mg/dL (70-110); HDL CHOLESTEROL 29 mg/dL (40-60); LDL CHOL (CALC.) 77 mg/dL (0-130); POTASSIUM 3.7 mmol/L (3.5-5.1); SODIUM SERUM 141 mmol/L (136-145); TOTAL PROTEIN, SERUM 7.7 g/dL (6.4-8.2); TRIGLYCERIDES 80 mg/dL (15-150); UREA NITROGEN, BLOOD 9 mg/dL (7-18)
[2020-10-20 08:21] VITALS: BP 104/63
[2020-10-20 08:30] VITALS: BP 112/70
[2020-10-20 08:56] LABS: FREE T4 (FREE THYROXINE) 1.15 ng/dL (0.76-1.46); HCG,QUANTITATIVE < 1 mIU/mL (0-6); THYROID STIMULATING HORMONE 2.23 uIU/mL (0.36-3.74)
[2020-10-20] MEDS ORDERED: ARIPiprazole ER SUSPENSION 400 MG PRE-FILLED DUAL CHAMBER SYRINGE IM SCH (09:00)
[2020-10-20 11:22] LABS: GLUCOMETER DEV NAME(LOC) BV3S.; GLUCOSE,POINT OF CARE 176 MG/DL (70-110)
[2020-10-20 16:04] VITALS: BP 109/75
[2020-10-20 16:17] LABS: GLUCOMETER DEV NAME(LOC) BV3S.; GLUCOSE,POINT OF CARE 211 MG/DL (70-110)
[2020-10-20] MEDS: QUEtiapine FUMARATE 300 MG TABLET PO SCH (20:16)
[2020-10-20 20:38] LABS: GLUCOMETER DEV NAME(LOC) BV3S.; GLUCOSE,POINT OF CARE 175 MG/DL (70-110)
[2020-10-21 00:55] VITALS: BP 102/68
[2020-10-21] MEDS: MetFORMIN HCL 500 MG TABLET PO SCH ×2 (06:06→17:16)
[2020-10-21] MEDS: INSULIN LISPRO 100 UNITS/ML SQ PRN ×4 (06:20→20:31)
[2020-10-21 06:27] LABS: GLUCOMETER DEV NAME(LOC) BV3S.; GLUCOSE,POINT OF CARE 164 MG/DL (70-110)
[2020-10-21 08:12] VITALS: BP 112/66
[2020-10-21] MEDS: LITHIUM CARBONATE 300 MG TABLET PO SCH ×2 (08:33→17:16)
[2020-10-21 08:50] LABS: GLUCOMETER DEV NAME(LOC) BV3S.; GLUCOSE,POINT OF CARE 152 MG/DL (70-110)
[2020-10-21 16:15] VITALS: BP 125/73
[2020-10-21 17:26] LABS: GLUCOMETER DEV NAME(LOC) BV3S.; GLUCOSE,POINT OF CARE 170 MG/DL (70-110)
[2020-10-21] MEDS: QUEtiapine FUMARATE 300 MG TABLET PO SCH (20:29)
[2020-10-21 20:39] LABS: GLUCOMETER DEV NAME(LOC) BV3S.; GLUCOSE,POINT OF CARE 161 MG/DL (70-110)
[2020-10-22 01:45] VITALS: BP 110/68
[2020-10-22] MEDS: INSULIN LISPRO 100 UNITS/ML SQ PRN ×3 (06:23→17:12)
[2020-10-22] MEDS: MetFORMIN HCL 500 MG TABLET PO SCH ×2 (06:27→16:58)
[2020-10-22 06:28] LABS: GLUCOMETER DEV NAME(LOC) BV3S.; GLUCOSE,POINT OF CARE 149 MG/DL (70-110)
[2020-10-22 08:21] VITALS: BP 122/86
[2020-10-22] MEDS: LITHIUM CARBONATE 300 MG TABLET PO SCH ×2 (08:27→16:57)
[2020-10-22 11:32] LABS: GLUCOMETER DEV NAME(LOC) BV3S.; GLUCOSE,POINT OF CARE 198 MG/DL (70-110)
[2020-10-22 16:03] VITALS: BP 118/68
[2020-10-22 16:17] LABS: GLUCOMETER DEV NAME(LOC) BV3S.; GLUCOSE,POINT OF CARE 149 MG/DL (70-110)
[2020-10-22] MEDS: LORazepam 2 MG TABLET PO PRN (17:11)
[2020-10-22] MEDS: QUEtiapine FUMARATE 300 MG TABLET PO SCH (20:21)
[2020-10-22 20:59] LABS: GLUCOMETER DEV NAME(LOC) BV3S.; GLUCOSE,POINT OF CARE 131 MG/DL (70-110)
[2020-10-23 06:22] VITALS: BP 123/78
[2020-10-23] MEDS: MetFORMIN HCL 500 MG TABLET PO SCH ×2 (06:22→16:54)
[2020-10-23 06:30] LABS: GLUCOMETER DEV NAME(LOC) BV3S.; GLUCOSE,POINT OF CARE 115 MG/DL (70-110)
[2020-10-23 08:08] VITALS: BP 114/71
[2020-10-23] MEDS: LITHIUM CARBONATE 300 MG TABLET PO SCH ×2 (08:14→16:01)
[2020-10-23 10:47] LABS: GLUCOMETER DEV NAME(LOC) BV3S.; GLUCOSE,POINT OF CARE 141 MG/DL (70-110)
[2020-10-23] MEDS: INSULIN LISPRO 100 UNITS/ML SQ PRN (11:46)
[2020-10-23] MEDS: BENZTROPINE MESYLATE 1 MG TABLET PO SCH (16:00)
[2020-10-23] MEDS: LORazepam 2 MG TABLET PO PRN (16:01)
[2020-10-23 16:06] VITALS: BP 110/69
[2020-10-23 17:02] LABS: GLUCOMETER DEV NAME(LOC) BV3S.; GLUCOSE,POINT OF CARE 116 MG/DL (70-110)
[2020-10-23] MEDS: QUEtiapine FUMARATE 300 MG TABLET PO SCH (20:36)
[2020-10-23 21:17] LABS: GLUCOMETER DEV NAME(LOC) BV3S.; GLUCOSE,POINT OF CARE 130 MG/DL (70-110)
[2020-10-24 00:53] VITALS: BP 108/72
[2020-10-24] MEDS: MetFORMIN HCL 500 MG TABLET PO SCH ×2 (06:31→16:29)
[2020-10-24 06:50] LABS: GLUCOMETER DEV NAME(LOC) BV3S.; GLUCOSE,POINT OF CARE 135 MG/DL (70-110)
[2020-10-24 08:07] VITALS: BP 118/69
[2020-10-24] MEDS: LITHIUM CARBONATE 300 MG TABLET PO SCH ×2 (08:14→16:29)
[2020-10-24] MEDS: BENZTROPINE MESYLATE 1 MG TABLET PO SCH ×2 (08:14→16:29)
[2020-10-24 10:33] LABS: GLUCOMETER DEV NAME(LOC) BV3S.; GLUCOSE,POINT OF CARE 185 MG/DL (70-110)
[2020-10-24] MEDS: INSULIN LISPRO 100 UNITS/ML SQ PRN ×2 (11:31→17:47)
[2020-10-24 16:05] VITALS: BP 108/77
[2020-10-24] MEDS: LORazepam 2 MG TABLET PO PRN (16:30)
[2020-10-24 17:53] LABS: GLUCOMETER DEV NAME(LOC) BV3S.; GLUCOSE,POINT OF CARE 163 MG/DL (70-110)
[2020-10-24] MEDS: ZOLPIDEM TARTRATE 10 MG TABLET PO PRN (20:08)
[2020-10-24] MEDS: QUEtiapine FUMARATE 300 MG TABLET PO SCH (20:08)
[2020-10-24 20:19] LABS: GLUCOMETER DEV NAME(LOC) BV3S.; GLUCOSE,POINT OF CARE 126 MG/DL (70-110)
[2020-10-25 04:02] VITALS: BP 118/65
[2020-10-25] MEDS: MetFORMIN HCL 500 MG TABLET PO SCH ×2 (06:22→16:19)
[2020-10-25 06:31] LABS: GLUCOMETER DEV NAME(LOC) BV3S.; GLUCOSE,POINT OF CARE 118 MG/DL (70-110)
[2020-10-25] MEDS: LITHIUM CARBONATE 300 MG TABLET PO SCH ×2 (08:02→16:19)
[2020-10-25] MEDS: BENZTROPINE MESYLATE 1 MG TABLET PO SCH ×2 (08:02→16:19)
[2020-10-25 08:13] VITALS: BP 118/70
[2020-10-25] MEDS: INSULIN LISPRO 100 UNITS/ML SQ PRN ×2 (11:06→20:58)
[2020-10-25 11:10] LABS: GLUCOMETER DEV NAME(LOC) BV3S.; GLUCOSE,POINT OF CARE 161 MG/DL (70-110)
[2020-10-25] MEDS: LORazepam 2 MG TABLET PO PRN (12:17)
[2020-10-25] MEDS: HALOPERIDOL 5 MG TABLET PO PRN (14:14)
[2020-10-25 16:06] VITALS: BP 113/73
[2020-10-25 17:17] LABS: GLUCOMETER DEV NAME(LOC) BV3S.; GLUCOSE,POINT OF CARE 121 MG/DL (70-110)
[2020-10-25] MEDS: ZOLPIDEM TARTRATE 10 MG TABLET PO PRN (20:39)
[2020-10-25] MEDS: QUEtiapine FUMARATE 300 MG TABLET PO SCH (20:39)
[2020-10-25 20:49] LABS: GLUCOMETER DEV NAME(LOC) BV3S.; GLUCOSE,POINT OF CARE 173 MG/DL (70-110)
[2020-10-26 05:37] VITALS: BP 116/56
[2020-10-26] MEDS: MetFORMIN HCL 500 MG TABLET PO SCH ×2 (07:04→16:14)
[2020-10-26] MEDS: INSULIN LISPRO 100 UNITS/ML SQ PRN ×2 (07:06→20:45)
[2020-10-26 07:09] LABS: GLUCOMETER DEV NAME(LOC) BV3S.; GLUCOSE,POINT OF CARE 172 MG/DL (70-110)
[2020-10-26 08:12] VITALS: BP 111/71
[2020-10-26] MEDS: BENZTROPINE MESYLATE 1 MG TABLET PO SCH ×2 (09:01→16:14)
[2020-10-26] MEDS: LITHIUM CARBONATE 300 MG TABLET PO SCH ×2 (09:05→16:12)
[2020-10-26 11:30] LABS: GLUCOMETER DEV NAME(LOC) BV3S.; GLUCOSE,POINT OF CARE 110 MG/DL (70-110)
[2020-10-26] MEDS: LORazepam 2 MG TABLET PO PRN (16:14)
[2020-10-26 16:25] VITALS: BP 106/67
[2020-10-26 16:38] LABS: GLUCOMETER DEV NAME(LOC) BV3S.; GLUCOSE,POINT OF CARE 133 MG/DL (70-110)
[2020-10-26] MEDS: HALOPERIDOL 5 MG TABLET PO PRN (18:56)
[2020-10-26] MEDS: QUEtiapine FUMARATE 300 MG TABLET PO SCH (20:44)
[2020-10-26 21:12] LABS: GLUCOMETER DEV NAME(LOC) BV3N.; GLUCOSE,POINT OF CARE 159 MG/DL (70-110)
[2020-10-27 05:31] VITALS: BP 114/65
[2020-10-27] MEDS: MetFORMIN HCL 500 MG TABLET PO SCH ×2 (06:40→16:38)
[2020-10-27 06:45] LABS: GLUCOMETER DEV NAME(LOC) BV3S.; GLUCOSE,POINT OF CARE 120 MG/DL (70-110)
[2020-10-27] MEDS: LORazepam 2 MG TABLET PO PRN (08:01)
[2020-10-27] MEDS: LITHIUM CARBONATE 300 MG TABLET PO SCH ×2 (08:01→16:38)
[2020-10-27] MEDS: BENZTROPINE MESYLATE 1 MG TABLET PO SCH ×2 (08:01→16:37)
[2020-10-27] MEDS: HALOPERIDOL 5 MG TABLET PO PRN (08:10)
[2020-10-27 08:18] VITALS: BP 109/65
[2020-10-27 11:10] LABS: GLUCOMETER DEV NAME(LOC) BV3S.; GLUCOSE,POINT OF CARE 109 MG/DL (70-110)
[2020-10-27 16:14] VITALS: BP 113/71
[2020-10-27] MEDS: INSULIN LISPRO 100 UNITS/ML SQ PRN (17:08)
[2020-10-27 17:19] LABS: GLUCOMETER DEV NAME(LOC) BV3S.; GLUCOSE,POINT OF CARE 145 MG/DL (70-110)
[2020-10-27] MEDS: QUEtiapine FUMARATE 300 MG TABLET PO SCH (20:08)
[2020-10-27 21:29] LABS: GLUCOMETER DEV NAME(LOC) BV2S.; GLUCOSE,POINT OF CARE 133 MG/DL (70-110)
[2020-10-28 01:03] VITALS: BP 110/67
[2020-10-28] MEDS: MetFORMIN HCL 500 MG TABLET PO SCH ×2 (06:22→11:10)
[2020-10-28 06:23] LABS: GLUCOMETER DEV NAME(LOC) BV2S.; GLUCOSE,POINT OF CARE 116 MG/DL (70-110)
[2020-10-28 08:30] VITALS: BP 114/61
[2020-10-28] MEDS: LITHIUM CARBONATE 300 MG TABLET PO SCH ×2 (11:09→16:31)
[2020-10-28] MEDS: BENZTROPINE MESYLATE 1 MG TABLET PO SCH ×2 (11:09→16:31)
[2020-10-28] MEDS: LORazepam 2 MG TABLET PO PRN (12:52)
[2020-10-28 13:30] LABS: GLUCOMETER DEV NAME(LOC) BV2S.; GLUCOSE,POINT OF CARE 164 MG/DL (70-110)
[2020-10-28 16:13] VITALS: BP 118/74
[2020-10-28 20:17] LABS: GLUCOMETER DEV NAME(LOC) BV2S.; GLUCOSE,POINT OF CARE 166 MG/DL (70-110)
[2020-10-28] MEDS: QUEtiapine FUMARATE 300 MG TABLET PO SCH (20:42)
[2020-10-28] MEDS: INSULIN LISPRO 100 UNITS/ML SQ PRN (20:45)
[2020-10-29 00:32] VITALS: BP 124/77
[2020-10-29 06:28] LABS: GLUCOMETER DEV NAME(LOC) BV2S.; GLUCOSE,POINT OF CARE 133 MG/DL (70-110)
[2020-10-29] MEDS: MetFORMIN HCL 500 MG TABLET PO SCH ×2 (07:00→16:07)
[2020-10-29 07:46] LABS: COVID AG,FIA SOURCE NASOPHARYNGEAL
[2020-10-29 08:09] VITALS: BP 114/68
[2020-10-29] MEDS: LITHIUM CARBONATE 300 MG TABLET PO SCH ×2 (09:34→16:07)
[2020-10-29] MEDS: BENZTROPINE MESYLATE 1 MG TABLET PO SCH ×2 (09:35→16:07)
[2020-10-29] MEDS: INSULIN LISPRO 100 UNITS/ML SQ PRN ×2 (11:32→20:39)
[2020-10-29 11:38] LABS: GLUCOMETER DEV NAME(LOC) BV2S.; GLUCOSE,POINT OF CARE 146 MG/DL (70-110)
[2020-10-29] MEDS: LORazepam 2 MG TABLET PO PRN (12:29)
[2020-10-29 16:16] VITALS: BP 108/60
[2020-10-29 16:29] LABS: GLUCOMETER DEV NAME(LOC) BV2S.; GLUCOSE,POINT OF CARE 135 MG/DL (70-110)
[2020-10-29] MEDS: QUEtiapine FUMARATE 300 MG TABLET PO SCH (20:19)
[2020-10-29 21:05] LABS: GLUCOMETER DEV NAME(LOC) BV2S.; GLUCOSE,POINT OF CARE 165 MG/DL (70-110)
[2020-10-30 00:15] VITALS: BP 120/71
[2020-10-30 06:22] LABS: GLUCOMETER DEV NAME(LOC) BV2S.; GLUCOSE,POINT OF CARE 139 MG/DL (70-110)
[2020-10-30] MEDS: MetFORMIN HCL 500 MG TABLET PO SCH ×2 (06:53→16:04)
[2020-10-30 08:08] VITALS: BP 120/74
[2020-10-30] MEDS: LITHIUM CARBONATE 300 MG TABLET PO SCH ×2 (08:52→16:04)
[2020-10-30] MEDS: BENZTROPINE MESYLATE 1 MG TABLET PO SCH ×2 (08:52→16:01)
[2020-10-30 11:42] LABS: GLUCOMETER DEV NAME(LOC) BV2S.; GLUCOSE,POINT OF CARE 127 MG/DL (70-110)
[2020-10-30 16:05] VITALS: BP 110/65
[2020-10-30 16:21] LABS: GLUCOMETER DEV NAME(LOC) BV2S.; GLUCOSE,POINT OF CARE 125 MG/DL (70-110)
[2020-10-30] MEDS: QUEtiapine FUMARATE 300 MG TABLET PO SCH (20:17)
[2020-10-30] MEDS: INSULIN LISPRO 100 UNITS/ML SQ PRN (20:47)
[2020-10-30 22:45] LABS: GLUCOMETER DEV NAME(LOC) BV2S.; GLUCOSE,POINT OF CARE 192 MG/DL (70-110)
[2020-10-31 00:20] VITALS: BP 126/72
[2020-10-31 06:25] LABS: GLUCOMETER DEV NAME(LOC) BV2S.; GLUCOSE,POINT OF CARE 128 MG/DL (70-110)
[2020-10-31] MEDS: MetFORMIN HCL 500 MG TABLET PO SCH (06:50)
[2020-10-31 08:07] VITALS: BP 114/73
[2020-10-31] MEDS: LITHIUM CARBONATE 300 MG TABLET PO SCH (09:05)
[2020-10-31] MEDS: BENZTROPINE MESYLATE 1 MG TABLET PO SCH (09:07)
[2020-10-31] MEDS ORDERED: BENZ1TAB10 PO (13:35)
[2020-10-31] MEDS ORDERED: ARIP400S3 IM (13:36)
[2020-10-31 14:12] LABS: GLUCOMETER DEV NAME(LOC) BV2S.; GLUCOSE,POINT OF CARE 187 MG/DL (70-110)
[2020-10-31] MEDS: INSULIN LISPRO 100 UNITS/ML SQ PRN (14:31)
== END 2020-10-31 12:50 | disposition home or self-care (01) | DRG 750 ==
LOC: B3A 19:47 → B2S 10-27 20:00
PROVIDERS: ADMIT Psychiatry & Neurology Psychiatry; ATTEND Psychiatry & Neurology Psychiatry
DX: F20.0 Paranoid schizophrenia (principal); R45.851 Suicidal ideations; D50.9 Iron deficiency anemia, unspecified; E55.9 Vitamin D deficiency, unspecified; E11.65 Type 2 diabetes mellitus with hyperglycemia; F41.9 Anxiety disorder, unspecified; G47.00 Insomnia, unspecified; K21.9 Gastro-esophageal reflux disease without esophagitis; K59.00 Constipation, unspecified; Z79.899 Other long term (current) drug therapy; Z20.822 Contact with and (suspected) exposure to COVID-19
CPT/HCPCS: 80053; 80061; 80178; 82962; 83036; 84439; 84443; 84702; 85025; J0401; Q0162

== ENCOUNTER 2021-03-06 12:30 | Outpatient (CLI) | payer BC, MEDICAID ==
[~2021-03-06 12:30] MED LIST changes: +ARIP400S3 IM; +BENZ1TAB10 PO; +METF-1211 PO; -METF-960 PO
[2021-03-06 12:52] VITALS: BP 94/62
[2021-03-06 14:11] LABS: GLUCOMETER DEV NAME(LOC) POC.BV
[2021-03-06 17:08] VITALS: BP 94/62
[2021-03-06] MEDS: MetFORMIN HCL 500 MG TABLET PO SCH (17:08)
[2021-03-06 18:06] LABS: GLUCOMETER DEV NAME(LOC) CSU.; GLUCOSE,POINT OF CARE 275 MG/DL (70-110)
[2021-03-06 20:10] VITALS: BP 107/72
[2021-03-06] MEDS ORDERED: QUEtiapine FUMARATE 100 MG TABLET PO SCH (21:00)
[2021-03-07 06:37] LABS: GLUCOMETER DEV NAME(LOC) CSU.; GLUCOSE,POINT OF CARE 192 MG/DL (70-110)
[2021-03-07] MEDS: MetFORMIN HCL 500 MG TABLET PO SCH (07:00)
[2021-03-07 08:18] VITALS: BP 105/75
[2021-03-07] MEDS ORDERED: QUET100T PO (08:37)
== END 2021-03-07 09:45 | disposition home or self-care (01) ==
LOC: CSU 12:30
PROVIDERS: ATTEND Psychiatry & Neurology Psychiatry
DX: F25.9 Schizoaffective disorder, unspecified (principal); F32.A Depression, unspecified; Z20.822 Contact with and (suspected) exposure to COVID-19; Z87.891 Personal history of nicotine dependence; Z88.8 Allergy status to other drugs, medicaments and biological substances
CPT/HCPCS: 82962; 90792

== ENCOUNTER 2021-05-19 16:06 | Inpatient (IN) | payer MEDICAID ==
[~2021-05-19] VITALS: Ht 170.2 cm; Wt 79.5 kg
[~2021-05-19 16:06] MED LIST changes: -BENZ1TAB10 PO; -LITH300T PO; +QUET100T PO; -QUET300T2 PO
[2021-05-19 18:31] LABS: GLUCOMETER DEV NAME(LOC) POC.BV
[2021-05-19] MEDS ORDERED: ZOLPIDEM TARTRATE 10 MG TABLET PO PRN (21:45)
[2021-05-19 21:54] VITALS: BP 134/69
[2021-05-19] MEDS ORDERED: GLUCAGON,HUMAN RECOMBINANT 1 MG VIAL IM PRN (22:15)
[2021-05-20] MEDS: INSULIN LISPRO 100 UNITS/ML SQ PRN ×5 (00:33→20:36)
[2021-05-20 04:50] VITALS: BP 121/73
[2021-05-20 06:36] LABS: GLUCOMETER DEV NAME(LOC) BV3S.; GLUCOSE,POINT OF CARE 269 MG/DL (70-110)
[2021-05-20 07:55] LABS: BASOPHILS % (AUTO) 1.3 % (0.0-2.0); EOSINOPHILS % (AUTO) 3.6 % (1.0-6.0); HEMATOCRIT 36.3 % (36-46); HEMOGLOBIN 12.5 g/dL (12.0-16.0); LYMPHOCYTES # (AUTO) 2.4 K/uL (1.0-4.8); LYMPHOCYTES % (AUTO) 36.2 % (22.0-44.0); MEAN CORPUSCULAR HGB CONC 34.4 G/dL (31.0-37.0); MEAN CORPUSCULAR VOLUME 84 fL (80-100); MONOCYTES # (AUTO) 0.4 K/uL (0.1-1.0); MONOCYTES % (AUTO) 6.3 % (2.0-9.0); NEUTROPHILS # (AUTO) 3.6 K/uL (1.8-7.7); NEUTROPHILS % (AUTO) 52.6 % (40.0-70.0); PLATELET COUNT (AUTO) 277 K/uL (150-450); RED CELL DISTRIBUTION WIDTH 13.8 % (11.5-14.5)
[2021-05-20 08:02] LABS: HEMOGLOBIN A1C 9.2 % (3.8-5.6)
[2021-05-20] MEDS: LORazepam 2 MG TABLET PO PRN ×2 (08:04→20:44)
[2021-05-20 08:23] VITALS: BP 122/61
[2021-05-20 08:26] LABS: ALANINE AMINOTRANSFERASE 16 U/L (12-78); ALBUMIN 3.2 g/dL (3.4-5.0); ALKALINE PHOSPHATASE 51 U/L (46-116); ANION GAP 9 mmol/L (8-16); ASPARTATE AMINOTRANSFERASE 5 U/L (15-37); BILIRUBIN,TOTAL 0.3 mg/dL (0.1-1.0); CALCIUM, TOTAL 8.3 mg/dL (8.8-10.5); CARBON DIOXIDE 25 mmol/L (22-29); CHLORIDE 104 mmol/L (98-107); CHOL/HDL RATIO 4.9 (3.9-5.7); CHOLESTEROL 136 mg/dL (131-200); CREATININE 0.58 mg/dL (0.60-1.30); FREE T4 (FREE THYROXINE) 1.12 ng/dL (0.76-1.46); GLOMERULAR FILTR. RATE CALC > 60 mL/min (>60); GLUCOSE,RANDOM 294 mg/dL (70-110); HDL CHOLESTEROL 28 mg/dL (40-60); LDL CHOL (CALC.) 92 mg/dL (0-130); POTASSIUM 3.5 mmol/L (3.5-5.1); SODIUM SERUM 138 mmol/L (136-145); THYROID STIMULATING HORMONE 1.71 uIU/mL (0.36-3.74); TOTAL PROTEIN, SERUM 6.9 g/dL (6.4-8.2); TRIGLYCERIDES 82 mg/dL (15-150); UREA NITROGEN, BLOOD 11 mg/dL (7-18)
[2021-05-20] MEDS ORDERED: IBUPROFEN 400 MG TABLET PO PRN (09:30)
[2021-05-20] MEDS ORDERED: ONDANSETRON HCL 4 MG TABLET PO PRN (09:30)
[2021-05-20] MEDS ORDERED: CloNIDine HCL 0.1 MG TABLET PO PRN (09:30)
[2021-05-20] MEDS ORDERED: MAGNESIUM HYDROXIDE SUSPENSION 30 ML UDCUP PO PRN (09:30)
[2021-05-20] MEDS ORDERED: MAG HYDROX/AL HYDROX/SIMETH ES 30 ML SUSPENSION UDCUP PO PRN (09:30)
[2021-05-20] MEDS ORDERED: GuaiFENesin/D-METHORPHAN [SUGAR-FREE] 200-20MG/10 ML SYRUP UDCUP PO PRN (09:30)
[2021-05-20] MEDS ORDERED: PETROLATUM,WHITE 28 GM JELLY TP PRN (09:30)
[2021-05-20] MEDS ORDERED: DOCUSATE SODIUM 100 MG CAPSULE PO PRN (09:30)
[2021-05-20] MEDS ORDERED: ALBUTEROL SULFATE HFA 90 MCG/PUFF 8 GM INHALER IH PRN (09:30)
[2021-05-20] MEDS ORDERED: ACETAMINOPHEN 325 MG TABLET PO PRN (09:30)
[2021-05-20] MEDS ORDERED: LOPERAMIDE HCL 2 MG CAPSULE PO PRN (09:30)
[2021-05-20] MEDS ORDERED: NICOTINE 14 MG/24 HOUR PATCH TD PRN (09:30)
[2021-05-20 12:01] LABS: GLUCOMETER DEV NAME(LOC) BV3S.; GLUCOSE,POINT OF CARE 308 MG/DL (70-110)
[2021-05-20] MEDS ORDERED: ARIPiprazole ER SUSPENSION 400 MG PRE-FILLED DUAL CHAMBER SYRINGE IM ONE (12:30)
[2021-05-20] MEDS: MetFORMIN HCL 500 MG TABLET PO SCH (16:09)
[2021-05-20] MEDS: RisperiDONE 1 MG TABLET PO SCH (16:09)
[2021-05-20] MEDS: DIVALPROEX SODIUM 500 MG DR TABLET PO SCH (16:09)
[2021-05-20 16:18] VITALS: BP 112/66
[2021-05-20 16:21] LABS: GLUCOMETER DEV NAME(LOC) BV3S.; GLUCOSE,POINT OF CARE 376 MG/DL (70-110)
[2021-05-20] MEDS: QUEtiapine FUMARATE 100 MG TABLET PO SCH (20:44)
[2021-05-20 20:51] LABS: GLUCOMETER DEV NAME(LOC) BV3S.; GLUCOSE,POINT OF CARE 292 MG/DL (70-110)
[2021-05-21 00:36] VITALS: BP 110/75
[2021-05-21] MEDS: MetFORMIN HCL 500 MG TABLET PO SCH ×2 (06:31→16:19)
[2021-05-21] MEDS: INSULIN LISPRO 100 UNITS/ML SQ PRN ×4 (06:33→20:23)
[2021-05-21 06:36] LABS: GLUCOMETER DEV NAME(LOC) BV3S.; GLUCOSE,POINT OF CARE 261 MG/DL (70-110)
[2021-05-21 08:13] VITALS: BP 92/60
[2021-05-21] MEDS: RisperiDONE 1 MG TABLET PO SCH ×2 (08:30→16:19)
[2021-05-21] MEDS: DIVALPROEX SODIUM 500 MG DR TABLET PO SCH ×2 (08:30→16:19)
[2021-05-21 12:01] LABS: GLUCOMETER DEV NAME(LOC) BV3S.; GLUCOSE,POINT OF CARE 297 MG/DL (70-110)
[2021-05-21] MEDS: LORazepam 2 MG TABLET PO PRN (14:39)
[2021-05-21 16:26] LABS: GLUCOMETER DEV NAME(LOC) BV3S.; GLUCOSE,POINT OF CARE 278 MG/DL (70-110)
[2021-05-21 17:17] VITALS: BP 88/68
[2021-05-21] MEDS: QUEtiapine FUMARATE 100 MG TABLET PO SCH (20:21)
[2021-05-21 20:26] LABS: GLUCOMETER DEV NAME(LOC) BV3S.; GLUCOSE,POINT OF CARE 266 MG/DL (70-110)
[2021-05-22] MEDS: MetFORMIN HCL 500 MG TABLET PO SCH ×2 (06:32→16:52)
[2021-05-22] MEDS: INSULIN LISPRO 100 UNITS/ML SQ PRN ×4 (06:35→20:21)
[2021-05-22 06:41] LABS: GLUCOMETER DEV NAME(LOC) BV3S.; GLUCOSE,POINT OF CARE 217 MG/DL (70-110)
[2021-05-22 08:04] VITALS: BP 108/53
[2021-05-22] MEDS: RisperiDONE 1 MG TABLET PO SCH ×2 (08:30→16:52)
[2021-05-22] MEDS: DIVALPROEX SODIUM 500 MG DR TABLET PO SCH ×2 (08:30→16:52)
[2021-05-22] MEDS: LORazepam 2 MG TABLET PO PRN ×2 (08:34→16:52)
[2021-05-22 12:31] LABS: GLUCOMETER DEV NAME(LOC) BV3S.; GLUCOSE,POINT OF CARE 288 MG/DL (70-110)
[2021-05-22 16:11] VITALS: BP 115/70
[2021-05-22 17:01] LABS: GLUCOMETER DEV NAME(LOC) BV3S.; GLUCOSE,POINT OF CARE 315 MG/DL (70-110)
[2021-05-22] MEDS: HALOPERIDOL 5 MG TABLET PO PRN (18:26)
[2021-05-22] MEDS: QUEtiapine FUMARATE 100 MG TABLET PO SCH (20:23)
[2021-05-22 20:30] LABS: GLUCOMETER DEV NAME(LOC) BV3S.; GLUCOSE,POINT OF CARE 228 MG/DL (70-110)
[2021-05-23] MEDS: INSULIN LISPRO 100 UNITS/ML SQ PRN ×4 (06:37→20:30)
[2021-05-23 06:40] VITALS: BP 120/75
[2021-05-23] MEDS: MetFORMIN HCL 500 MG TABLET PO SCH ×2 (06:41→16:07)
[2021-05-23 06:51] LABS: GLUCOMETER DEV NAME(LOC) BV3S.; GLUCOSE,POINT OF CARE 224 MG/DL (70-110)
[2021-05-23 07:53] VITALS: BP 100/60
[2021-05-23] MEDS: DIVALPROEX SODIUM 500 MG DR TABLET PO SCH ×2 (08:13→16:07)
[2021-05-23] MEDS: RisperiDONE 1 MG TABLET PO SCH ×2 (08:18→16:32)
[2021-05-23 09:00] VITALS: BP 105/60
[2021-05-23 11:06] LABS: GLUCOMETER DEV NAME(LOC) BV3S.; GLUCOSE,POINT OF CARE 383 MG/DL (70-110)
[2021-05-23] MEDS: HALOPERIDOL 5 MG TABLET PO PRN (13:37)
[2021-05-23] MEDS: LORazepam 2 MG TABLET PO PRN (13:37)
[2021-05-23 16:06] VITALS: BP 109/72
[2021-05-23 16:41] LABS: GLUCOMETER DEV NAME(LOC) BV3S.; GLUCOSE,POINT OF CARE 246 MG/DL (70-110)
[2021-05-23] MEDS: QUEtiapine FUMARATE 100 MG TABLET PO SCH (20:14)
[2021-05-23 20:47] LABS: GLUCOMETER DEV NAME(LOC) BV3S.; GLUCOSE,POINT OF CARE 216 MG/DL (70-110)
[2021-05-24 05:06] VITALS: BP 110/70
[2021-05-24] MEDS: MetFORMIN HCL 500 MG TABLET PO SCH ×2 (06:36→16:06)
[2021-05-24] MEDS: INSULIN LISPRO 100 UNITS/ML SQ PRN ×4 (06:38→21:25)
[2021-05-24 06:56] LABS: GLUCOMETER DEV NAME(LOC) BV3S.; GLUCOSE,POINT OF CARE 210 MG/DL (70-110)
[2021-05-24 08:13] VITALS: BP 101/52
[2021-05-24] MEDS: DIVALPROEX SODIUM 500 MG DR TABLET PO SCH ×2 (08:37→16:06)
[2021-05-24] MEDS: RisperiDONE 1 MG TABLET PO SCH ×2 (08:37→16:31)
[2021-05-24 11:41] LABS: GLUCOMETER DEV NAME(LOC) BV2S.; GLUCOSE,POINT OF CARE 274 MG/DL (70-110)
[2021-05-24 16:07] VITALS: BP 102/63
[2021-05-24 16:47] LABS: GLUCOMETER DEV NAME(LOC) BV2S.; GLUCOSE,POINT OF CARE 264 MG/DL (70-110)
[2021-05-24] MEDS: LORazepam 2 MG TABLET PO PRN (19:05)
[2021-05-24] MEDS: HALOPERIDOL 5 MG TABLET PO PRN (19:28)
[2021-05-24] MEDS: QUEtiapine FUMARATE 100 MG TABLET PO SCH (20:36)
[2021-05-24 21:37] LABS: GLUCOMETER DEV NAME(LOC) BV2S.; GLUCOSE,POINT OF CARE 189 MG/DL (70-110)
[2021-05-25 04:51] VITALS: BP 108/63
[2021-05-25 07:06] LABS: GLUCOMETER DEV NAME(LOC) BV3S.; GLUCOSE,POINT OF CARE 223 MG/DL (70-110)
[2021-05-25] MEDS: MetFORMIN HCL 500 MG TABLET PO SCH ×2 (07:07→16:19)
[2021-05-25] MEDS: INSULIN LISPRO 100 UNITS/ML SQ PRN ×3 (07:09→16:19)
[2021-05-25 08:08] VITALS: BP 102/55
[2021-05-25] MEDS: RisperiDONE 1 MG TABLET PO SCH ×2 (08:11→16:20)
[2021-05-25] MEDS: DIVALPROEX SODIUM 500 MG DR TABLET PO SCH ×2 (08:11→16:19)
[2021-05-25 08:30] VITALS: BP 108/64
[2021-05-25] MEDS: LORazepam 2 MG TABLET PO PRN (08:38)
[2021-05-25 11:36] LABS: GLUCOMETER DEV NAME(LOC) BV3S.; GLUCOSE,POINT OF CARE 268 MG/DL (70-110)
[2021-05-25] MEDS ORDERED: RISP1TAB48 PO (11:51)
[2021-05-25] MEDS ORDERED: DIVA-112 PO ×2 (11:52→12:01)
[2021-05-25] MEDS ORDERED: QUET100T34 PO (12:01)
[2021-05-25] MEDS ORDERED: ARIP400S3 IM (12:01)
[2021-05-25] MEDS ORDERED: RISP1TAB98 PO (12:01)
[2021-05-25 16:24] VITALS: BP 104/66
[2021-05-25 16:26] LABS: GLUCOMETER DEV NAME(LOC) BV3S.; GLUCOSE,POINT OF CARE 232 MG/DL (70-110)
[2021-06-18] MEDS ORDERED: ARIPiprazole ER SUSPENSION 400 MG PRE-FILLED DUAL CHAMBER SYRINGE IM SCH (09:00)
== END 2021-05-25 18:00 | disposition home or self-care (01) | DRG 750 ==
LOC: B3A 21:17 → B2S 05-24 09:00 → B3A 05-24 21:30
PROVIDERS: ADMIT Psychiatry & Neurology Child & Adolescent Psychiatry; ATTEND Psychiatry & Neurology Child & Adolescent Psychiatry
DX: F25.1 Schizoaffective disorder, depressive type (principal); R45.851 Suicidal ideations; E11.9 Type 2 diabetes mellitus without complications; D64.9 Anemia, unspecified; F41.9 Anxiety disorder, unspecified; Z20.822 Contact with and (suspected) exposure to COVID-19; Z59.00 Homelessness unspecified; Z88.8 Allergy status to other drugs, medicaments and biological substances
CPT/HCPCS: 80053; 80061; 80164; 82962; 83036; 84439; 84443; 85025; J0401

== ENCOUNTER 2021-05-31 09:11 | Inpatient (IN) | payer MEDICAID ==
[~2021-05-31 09:11] MED LIST changes: +DIVA-112 PO; +QUET100T34 PO; +RISP1TAB48 PO; +RISP1TAB98 PO
[2021-05-31] MEDS ORDERED: GLUCAGON,HUMAN RECOMBINANT 1 MG VIAL IM PRN (12:45)
[2021-05-31 13:00] LABS: GLUCOMETER DEV NAME(LOC) BV3S.; GLUCOSE,POINT OF CARE 286 MG/DL (70-110)
[2021-05-31] MEDS: LORazepam 2 MG TABLET PO PRN (13:37)
[2021-05-31] MEDS: MetFORMIN HCL 500 MG TABLET PO SCH (16:31)
[2021-05-31] MEDS: INSULIN LISPRO 100 UNITS/ML SQ PRN ×2 (16:39→19:58)
[2021-05-31 16:55] LABS: GLUCOMETER DEV NAME(LOC) BV3S.; GLUCOSE,POINT OF CARE 253 MG/DL (70-110)
[2021-05-31 17:31] VITALS: BP 100/65
[2021-05-31 17:33] VITALS: BP 100/65
[2021-05-31 20:21] LABS: GLUCOMETER DEV NAME(LOC) BV3S.; GLUCOSE,POINT OF CARE 285 MG/DL (70-110)
[2021-06-01] MEDS ORDERED: -PHARMACY VACCINE NOTE- MISC ONE (01:00)
[2021-06-01] MEDS: HALOPERIDOL 5 MG TABLET PO PRN ×2 (02:44→10:08)
[2021-06-01] MEDS: LORazepam 2 MG TABLET PO PRN ×2 (02:45→10:08)
[2021-06-01 06:32] VITALS: BP 103/64
[2021-06-01] MEDS: INSULIN LISPRO 100 UNITS/ML SQ PRN ×4 (06:44→20:51)
[2021-06-01] MEDS: MetFORMIN HCL 500 MG TABLET PO SCH ×2 (06:46→17:13)
[2021-06-01 06:55] LABS: GLUCOMETER DEV NAME(LOC) BV3S.; GLUCOSE,POINT OF CARE 225 MG/DL (70-110)
[2021-06-01 07:26] LABS: BASOPHILS % (AUTO) 1.1 % (0.0-2.0); EOSINOPHILS % (AUTO) 2.2 % (1.0-6.0); HEMATOCRIT 36.6 % (36-46); HEMOGLOBIN 12.7 g/dL (12.0-16.0); LYMPHOCYTES % (AUTO) 41.9 % (22.0-44.0); MEAN CORPUSCULAR HEMOGLOBIN 29.6 pg (26.0-34.0); MEAN CORPUSCULAR HGB CONC 34.7 G/dL (31.0-37.0); MEAN CORPUSCULAR VOLUME 85 fL (80-100); MONOCYTES # (AUTO) 0.3 K/uL (0.1-1.0); MONOCYTES % (AUTO) 4.8 % (2.0-9.0); NEUTROPHILS # (AUTO) 3.6 K/uL (1.8-7.7); PLATELET COUNT (AUTO) 284 K/uL (150-450); RED BLOOD CELL COUNT(AUTO) 4.29 MIL/uL (4.00-5.20); RED CELL DISTRIBUTION WIDTH 13.9 % (11.5-14.5)
[2021-06-01 08:10] VITALS: BP 100/72
[2021-06-01] MEDS ORDERED: MAG HYDROX/AL HYDROX/SIMETH ES 30 ML SUSPENSION UDCUP PO PRN (08:15)
[2021-06-01] MEDS ORDERED: ACETAMINOPHEN 325 MG TABLET PO PRN (08:15)
[2021-06-01] MEDS ORDERED: ONDANSETRON HCL 4 MG TABLET PO PRN (08:15)
[2021-06-01] MEDS ORDERED: IBUPROFEN 600 MG TABLET PO PRN (08:15)
[2021-06-01] MEDS ORDERED: LOPERAMIDE HCL 2 MG CAPSULE PO PRN (08:15)
[2021-06-01] MEDS ORDERED: BENZOCAINE/MENTHOL LOZENGE PO PRN (08:15)
[2021-06-01] MEDS ORDERED: ALBUTEROL SULFATE HFA 90 MCG/PUFF 8 GM INHALER IH PRN (08:15)
[2021-06-01] MEDS ORDERED: OMEPRAZOLE 20 MG CAPSULE PO PRN (08:15)
[2021-06-01] MEDS ORDERED: MAGNESIUM HYDROXIDE SUSPENSION 30 ML UDCUP PO PRN (08:15)
[2021-06-01] MEDS ORDERED: BACITRACIN 28 GM OINTMENT TP PRN (08:15)
[2021-06-01] MEDS ORDERED: CloNIDine HCL 0.1 MG TABLET PO PRN (08:15)
[2021-06-01] MEDS ORDERED: PETROLATUM,WHITE 28 GM JELLY TP PRN (08:15)
[2021-06-01] MEDS ORDERED: DOCUSATE SODIUM 100 MG CAPSULE PO PRN (08:15)
[2021-06-01 08:20] LABS: ALANINE AMINOTRANSFERASE 27 U/L (12-78); ALBUMIN 3.2 g/dL (3.4-5.0); ALKALINE PHOSPHATASE 46 U/L (46-116); ANION GAP 5 mmol/L (8-16); ASPARTATE AMINOTRANSFERASE 12 U/L (15-37); BILIRUBIN,TOTAL 0.4 mg/dL (0.1-1.0); CALCIUM, TOTAL 8.5 mg/dL (8.8-10.5); CARBON DIOXIDE 23 mmol/L (22-29); CHLORIDE 105 mmol/L (98-107); CHOLESTEROL 121 mg/dL (131-200); CREATININE 0.62 mg/dL (0.60-1.30); FREE T4 (FREE THYROXINE) 1.29 ng/dL (0.76-1.46); GLOMERULAR FILTR. RATE CALC > 60 mL/min (>60); GLUCOSE,RANDOM 238 mg/dL (70-110); HCG,QUANTITATIVE < 1 mIU/mL (0-6); HDL CHOLESTEROL 30 mg/dL (40-60); LDL CHOL (CALC.) 79 mg/dL (0-130); POTASSIUM 3.8 mmol/L (3.5-5.1); SODIUM SERUM 133 mmol/L (136-145); THYROID STIMULATING HORMONE 1.36 uIU/mL (0.36-3.74); TOTAL PROTEIN, SERUM 6.8 g/dL (6.4-8.2); TRIGLYCERIDES 61 mg/dL (15-150); UREA NITROGEN, BLOOD 12 mg/dL (7-18)
[2021-06-01 10:00] VITALS: BP 108/74
[2021-06-01 12:01] LABS: GLUCOMETER DEV NAME(LOC) BV3S.; GLUCOSE,POINT OF CARE 302 MG/DL (70-110)
[2021-06-01 13:15] LABS: HEMOGLOBIN A1C 9.3 % (3.8-5.6)
[2021-06-01 16:05] VITALS: BP 107/69
[2021-06-01 17:46] LABS: GLUCOMETER DEV NAME(LOC) BV3S.; GLUCOSE,POINT OF CARE 254 MG/DL (70-110)
[2021-06-01 21:01] LABS: GLUCOMETER DEV NAME(LOC) BV3S.; GLUCOSE,POINT OF CARE 206 MG/DL (70-110)
[2021-06-01] MEDS: DIVALPROEX SODIUM 500 MG DR TABLET PO SCH (21:14)
[2021-06-01] MEDS: ZOLPIDEM TARTRATE 10 MG TABLET PO PRN (21:52)
[2021-06-02 05:39] VITALS: BP 108/63
[2021-06-02 06:21] LABS: GLUCOMETER DEV NAME(LOC) BV3S.; GLUCOSE,POINT OF CARE 217 MG/DL (70-110)
[2021-06-02] MEDS: INSULIN LISPRO 100 UNITS/ML SQ PRN ×4 (06:31→20:02)
[2021-06-02] MEDS: MetFORMIN HCL 500 MG TABLET PO SCH ×2 (06:45→16:36)
[2021-06-02 08:03] VITALS: BP 105/68
[2021-06-02] MEDS: DIVALPROEX SODIUM 500 MG DR TABLET PO SCH ×2 (08:12→20:03)
[2021-06-02] MEDS: ARIPiprazole 10 MG TABLET PO SCH (08:12)
[2021-06-02 11:21] LABS: GLUCOMETER DEV NAME(LOC) BV3S.; GLUCOSE,POINT OF CARE 224 MG/DL (70-110)
[2021-06-02 16:03] VITALS: BP 106/63
[2021-06-02 16:56] LABS: GLUCOMETER DEV NAME(LOC) BV3S.; GLUCOSE,POINT OF CARE 235 MG/DL (70-110)
[2021-06-02] MEDS: HALOPERIDOL 5 MG TABLET PO PRN (17:34)
[2021-06-02 20:06] LABS: GLUCOMETER DEV NAME(LOC) BV3S.; GLUCOSE,POINT OF CARE 165 MG/DL (70-110)
[2021-06-03 00:05] VITALS: BP 100/73
[2021-06-03] MEDS: MetFORMIN HCL 500 MG TABLET PO SCH ×2 (06:08→16:20)
[2021-06-03 06:31] LABS: GLUCOMETER DEV NAME(LOC) BV3S.; GLUCOSE,POINT OF CARE 171 MG/DL (70-110)
[2021-06-03] MEDS: INSULIN LISPRO 100 UNITS/ML SQ PRN ×4 (06:54→20:32)
[2021-06-03 08:00] VITALS: BP 108/68
[2021-06-03] MEDS: DIVALPROEX SODIUM 500 MG DR TABLET PO SCH ×2 (08:32→20:25)
[2021-06-03] MEDS: LORazepam 2 MG TABLET PO PRN ×2 (08:32→17:31)
[2021-06-03] MEDS: ARIPiprazole 10 MG TABLET PO SCH (08:32)
[2021-06-03 12:15] LABS: GLUCOMETER DEV NAME(LOC) BV3S.; GLUCOSE,POINT OF CARE 242 MG/DL (70-110)
[2021-06-03 16:26] LABS: GLUCOMETER DEV NAME(LOC) BV3S.; GLUCOSE,POINT OF CARE 163 MG/DL (70-110)
[2021-06-03 17:12] VITALS: BP 107/72
[2021-06-03 20:26] LABS: GLUCOMETER DEV NAME(LOC) BV3S.; GLUCOSE,POINT OF CARE 222 MG/DL (70-110)
[2021-06-04 01:10] VITALS: BP 112/67
[2021-06-04] MEDS: MetFORMIN HCL 500 MG TABLET PO SCH ×2 (06:26→16:39)
[2021-06-04] MEDS: INSULIN LISPRO 100 UNITS/ML SQ PRN ×4 (06:49→20:53)
[2021-06-04 07:01] LABS: GLUCOMETER DEV NAME(LOC) BV3S.; GLUCOSE,POINT OF CARE 169 MG/DL (70-110)
[2021-06-04] MEDS: ARIPiprazole 10 MG TABLET PO SCH (08:24)
[2021-06-04] MEDS: DIVALPROEX SODIUM 500 MG DR TABLET PO SCH ×2 (08:24→20:56)
[2021-06-04 08:25] VITALS: BP 106/72
[2021-06-04 08:36] LABS: GLUCOMETER DEV NAME(LOC) POC.BV
[2021-06-04 12:36] LABS: GLUCOMETER DEV NAME(LOC) BV3S.; GLUCOSE,POINT OF CARE 213 MG/DL (70-110)
[2021-06-04 16:00] VITALS: BP 105/66
[2021-06-04 16:50] LABS: GLUCOMETER DEV NAME(LOC) BV3S.; GLUCOSE,POINT OF CARE 231 MG/DL (70-110)
[2021-06-04] MEDS: LORazepam 2 MG TABLET PO PRN (20:56)
[2021-06-04] MEDS: ZOLPIDEM TARTRATE 10 MG TABLET PO PRN (20:56)
[2021-06-04 21:06] LABS: GLUCOMETER DEV NAME(LOC) BV3S.; GLUCOSE,POINT OF CARE 258 MG/DL (70-110)
[2021-06-05] MEDS: INSULIN LISPRO 100 UNITS/ML SQ PRN (06:21)
[2021-06-05 06:26] LABS: GLUCOMETER DEV NAME(LOC) BV3S.; GLUCOSE,POINT OF CARE 180 MG/DL (70-110)
[2021-06-05 06:40] VITALS: BP 110/70
[2021-06-05] MEDS: MetFORMIN HCL 500 MG TABLET PO SCH (06:50)
[2021-06-05 08:01] VITALS: BP 102/61
[2021-06-05] MEDS: DIVALPROEX SODIUM 500 MG DR TABLET PO SCH (08:02)
[2021-06-05] MEDS: ARIPiprazole 10 MG TABLET PO SCH (08:02)
[2021-06-05] MEDS ORDERED: DIVA-112 PO (14:41)
[2021-06-05] MEDS ORDERED: ARIP10TA38 PO (14:41)
[2021-06-05] MEDS ORDERED: METF-1211 PO (15:25)
[2021-06-05 16:04] VITALS: BP 112/71
== END 2021-06-05 15:30 | disposition home or self-care (01) | DRG 750 ==
LOC: B3A 12:34
PROVIDERS: ADMIT Psychiatry & Neurology Psychiatry; ATTEND Psychiatry & Neurology Psychiatry
DX: F25.9 Schizoaffective disorder, unspecified (principal); R45.851 Suicidal ideations; F29 Unspecified psychosis not due to a substance or known physiological condition; E11.65 Type 2 diabetes mellitus with hyperglycemia; F41.9 Anxiety disorder, unspecified; G47.00 Insomnia, unspecified; Z20.822 Contact with and (suspected) exposure to COVID-19; K21.9 Gastro-esophageal reflux disease without esophagitis; K59.00 Constipation, unspecified; E55.9 Vitamin D deficiency, unspecified; E56.8 Deficiency of other vitamins; F32.9 Major depressive disorder, single episode, unspecified; Z88.4 Allergy status to anesthetic agent; Z79.4 Long term (current) use of insulin; Z88.8 Allergy status to other drugs, medicaments and biological substances
CPT/HCPCS: 80053; 80061; 82962; 83036; 84436; 84439; 84443; 84702; 85025; 86592; 87081; G0480

== ENCOUNTER 2024-08-15 00:48 | Emergency (ER) | payer MEDICAID ==
[~2024-08-15] VITALS: Ht 170.2 cm; Wt 78.0 kg
[~2024-08-15 00:48] MED LIST changes: -ARIP400S3 IM; +BUSP15TA3 PO; +DIVA-111 PO; -DIVA-112 PO; -METF-1211 PO; +METF-446 PO; -QUET100T PO; -QUET100T34 PO; -RISP1TAB48 PO; -RISP1TAB98 PO; +SEMA0.258 SQ; +[UNRECOGNIZED DRUG - CODE] PO
[2024-08-15 00:50] VITALS: TEMP 98.2
[2024-08-15] MEDS: IBUPROFEN 400 MG TABLET PO ONE (01:47)
[2024-08-15] MEDS: ONDANSETRON 4 MG TABLET PO ONE (02:31)
[2024-08-15 03:45] VITALS: BP 99/66; PULSE 81; RESP 16; O2SAT 97
[2024-08-17] MEDS ORDERED: ARIP400S5 IM (21:48)
[2024-08-17] MEDS ORDERED: DIVA-112 PO (21:51)
[2024-08-17] MEDS ORDERED: FLUP2.5T24 PO (21:51)
[2024-08-17] MEDS ORDERED: BUSP15 PO (21:51)
[2024-08-17] MEDS ORDERED: METF-1211 PO (21:51)
== END 2024-08-15 03:50 ==
LOC: EMS 00:48
DX: S20.02XA Contusion of left breast, initial encounter (principal); E11.9 Type 2 diabetes mellitus without complications; F20.9 Schizophrenia, unspecified; F41.9 Anxiety disorder, unspecified; K21.9 Gastro-esophageal reflux disease without esophagitis; Z79.899 Other long term (current) drug therapy; Y08.89XA Assault by other specified means, initial encounter; Y93.89 Activity, other specified; Y92.89 Other specified places as the place of occurrence of the external cause; Y99.8 Other external cause status
CPT/HCPCS: 99283; Q0162